=== PATIENT | male | born 1945 | race Caucasian/White ===

== ENCOUNTER 2021-03-19 11:21 | Inpatient (IN) | payer OTHER ==
[~2021-03-19] VITALS: Ht 175.3 cm; Wt 102.1 kg
--- NOTE | 2021-03-19 11:21 | NUR ---
1116 BIBA ALS TO ER BED 10
--- NOTE | 2021-03-19 11:23 | NUR ---
MOVED TO ER BED 4
[2021-03-19 11:30] VITALS: BP 152/80
--- NOTE | 2021-03-19 11:43 | NUR ---
RT BEDSIDE SPEAKING WITH PATIENT
--- NOTE | 2021-03-19 11:43 | NUR ---
IV ESTABLISHED IN R AC AND BLOOD WORK COLLECTED. BLOOD HANDED TO WORKDAY DIRECTOR BEDSIDE
--- NOTE | 2021-03-19 11:43 | NUR ---
XRAY BEDSIDE WITH PATIENT
[2021-03-19] MEDS ORDERED: ALBUTEROL SULFATE/IPRATROPIU 3 ML SOL IH ONE (11:46)
--- NOTE | 2021-03-19 11:48 | NUR ---
PT PROVIDED WTIH URINAL BEDSIDE TO OBTAIN UA
--- NOTE | 2021-03-19 11:54 | NUR ---
RT BEDSIDE PROVIDING BREATHING TX TO PATIENT
--- NOTE | 2021-03-19 11:59 | NUR ---
76 Y MALE PT BIB [facility] FIRE C/O SOB, TACHYPNEA, HYPOTENSIVE. PT WAS IN THE MIDDLE OF HAVING RADITION TODAY WHEN THE MD NOTED PT STARTED TO EXPERINCE SOB AND HYPOTENSION. PT CURRENTLY GCS 15, BUT APPEARS TO BE LETHARIC AND TACHYPNEIC. BREATH SOUNDS DIMISHED THROUGHOUT AT THIS TIME. PT DENIES ANY CHEST PAIN, N/V, FEVER/CHILLS AT THIS TIME, BUT STATED HE IS EXPERINCING SOB. SKIN DRY AND INTACT, BUT MILD EDEMA NOTED BILATERAL UE AT THIS TIME. PT CURRENTLY PLACED ON 6L NC AND SATING 100% PMH: ESOPHOHEAL CANCER, HYPOTENSION, COPD NKA
[2021-03-19 12:01] LABS: BASOPHILS % (AUTO) 0.1 % (0.0-2.0); EOSINOPHILS % (AUTO) 0.2 % (0.0-4.0); HEMATOCRIT 41.8 % (36-52); HEMOGLOBIN 13.8 g/dL (12.0-18.0); LYMPHOCYTES # (AUTO) 0.3 K/uL (2.0-11.5); LYMPHOCYTES % (AUTO) 3.1 % (20.5-51.1); MEAN CORPUSCULAR HEMOGLOBIN 30 pg (27-31); MEAN CORPUSCULAR HGB CONC 33 g/dL (33-37); MEAN CORPUSCULAR VOLUME 90.2 fL (80-94); MONOCYTES # (AUTO) 0.5 K/uL (0.8-1.0); MONOCYTES % (AUTO) 5.5 % (1.7-9.3); NEUTROPHILS # (AUTO) 8.5 K/uL (1.8-7.7); NEUTROPHILS % (AUTO) 91.1 % (42.2-75.2); PLATELET COUNT (AUTO) 76 K/uL (140-450); RED BLOOD CELL COUNT(AUTO) 4.64 MIL/uL (4.20-6.10); RED CELL DISTRIBUTION WIDTH 18.6 % (11.6-13.7); WHITE BLOOD COUNT (AUTO) 9.4 K/uL (4.8-10.8)
[2021-03-19 12:29] LABS: CREATINE KINASE MB 4.4 ng/mL (0-3.6)
[2021-03-19 12:39] LABS: ANION GAP 15.6 (8-16); CARBON DIOXIDE 24.7 mmol/L (21-32); CHLORIDE 125 mmol/L (98-107); GLUCOSE 187 mg/dL (74-106); POTASSIUM 4.3 mmol/L (3.5-5.1); SODIUM SERUM 161 mmol/L (136-145)
[2021-03-19 12:40] LABS: ASPARTATE AMINOTRANSFERASE 56 U/L (15-37); CREATININE 2.7 mg/dL (0.6-1.3); TOTAL BILIRUBIN 0.8 mg/dL (0.0-1.0); UREA NITROGEN, BLOOD 101 mg/dL (7-18)
[2021-03-19 12:41] LABS: ALBUMIN 2.5 g/dL (3.4-5.0)
[2021-03-19] MEDS ORDERED: PANT40EC PO (12:46)
[2021-03-19] MEDS ORDERED: TERA5CAP8 PO (12:46)
[2021-03-19] MEDS ORDERED: [UNRECOGNIZED DRUG - CODE] PO (12:46)
--- NOTE | 2021-03-19 12:46 | NUR ---
med rec completed for patient
--- NOTE | 2021-03-19 12:48 | NUR ---
called and spoke with patient , will bring rest of patient medications
[2021-03-19] MEDS ORDERED: CEFEPIME 1,000 MG in DEXTROSE 5% 50 ML IV ONE (13:25)
[2021-03-19] MEDS ORDERED: VANCOMYCIN 1,000 MG in DEXTROSE 5% 250 ML IV ONE (13:25)
[2021-03-19] MEDS ORDERED: NACL 0.9% 1,000 ML IV ONE (13:25)
--- NOTE | 2021-03-19 13:30 | NUR ---
ER MADE AWARE OF LOW BP AND PLACED ORDERS AT THIS TIME
[2021-03-19] MEDS ORDERED: CEFEPIME 1,000 MG VIAL ONE (13:31)
--- NOTE | 2021-03-19 13:44 | NUR ---
PT TAKEN TO CT VIA [place]
--- NOTE | 2021-03-19 13:45 | NUR ---
PT TAKEN TO CT VIA [place]
--- NOTE | 2021-03-19 14:06 | NUR ---
PT BACK FROM CT AND CONNECTED TO MONITOR
[2021-03-19] MEDS ORDERED: VANCOMYCIN 1,000 MG VIAL ONE (14:52)
--- NOTE | 2021-03-19 15:22 | NUR ---
Patient appears to be resting comfortably in bed. Vital Signs CHARTED. Respirations even and unlabored.
--- NOTE | 2021-03-19 15:22 | NUR ---
Note devi in EDM - 03/19/21 at 1522 by [email or web address] Patient appears to be resting comfortably in bed. Vital Signs within normal limits. Respirations even and unlabored.
--- NOTE | 2021-03-19 15:48 | NUR ---
PT BEDSIDE AT THIS TIME
[2021-03-19] MEDS ORDERED: MAGIC MOUTHWASH PO (15:52)
[2021-03-19] MEDS ORDERED: [UNRECOGNIZED DRUG - OTHER] PO (15:52)
--- NOTE | 2021-03-19 17:40 | NUR ---
Patient appears to be resting comfortably in bed. Vital Signs CHARTED AT THIS TIME. Respirations even and unlabored. PT CURRENTLY SLEEPING AT THIS TIME
--- NOTE | 2021-03-19 19:10 | NUR ---
PT CLEANED BEDSIDE AND PROVIDED WITH FRESH DIAPER
--- NOTE | 2021-03-19 19:15 | NUR ---
SHIFT REPORT GIVEN BY RAJ LITTLE. RN TO ASSUME CARE OF PT.
--- NOTE | 2021-03-19 19:20 | NUR ---
PT LYING IN BED WITH EYES OPEN. DENIES ANY NEEDS AT THIS TIME. VS ARE STABLE, EQUAL RISE AND FALL OF CHEST. BREATHING WITHOUT DIFFICUTLY. WILL CONTINUE TO MONITOR PT.
[2021-03-19] MEDS ORDERED: guaiFENesin DM 200/20 MG-10 ML 10 ML UDC PO PRN (19:25)
[2021-03-19] MEDS ORDERED: DOCUSATE SODIUM 100 MG GELCAP PO PRN (19:25)
[2021-03-19] MEDS ORDERED: ACETAMINOPHEN 325 MG TAB PO PRN (19:25)
[2021-03-19] MEDS ORDERED: ONDANSETRON 4 MG/2 ML VIAL IM/IVP PRN (19:25)
[2021-03-19] MEDS ORDERED: POTASSIUM CHLORIDE 10 MEQ TABER PO PRN (19:25)
--- NOTE | 2021-03-19 19:25 | NUR ---
Pt report given to RAJ CUEVAS. Transfer of care at this time.
--- NOTE | 2021-03-19 19:25 | NUR ---
PT ADMITTED UNDER DR. VOSS TO TELE. PT TELE HOLD IN ED BED 4
[2021-03-19] MEDS ORDERED: NACL 0.9% 2,000 ML IV ONE (19:30)
--- NOTE | 2021-03-19 19:30 | NUR ---
PT SOILED BED. PERINEAL CARE AND LINEN CHANGE. PT REPOSITIONED IN BED. WARM BLANKETS PROVIDED FOR COMFORT.
[2021-03-19] MEDS: DEXT 5% /NACL 0.9% 1,000 ML IV SCH (20:01)
[2021-03-19 20:31] LABS: PROTHROMBIN TIME 11.7 secs (10.8-13.4)
--- NOTE | 2021-03-19 20:55 | NUR ---
REPORT CALLED TO RAJ PENDLETON.
[2021-03-19] MEDS ORDERED: PIPERACILLIN/TAZOBACTAM 3.375 GM in DEXTROSE 5% 50 ML IV SCH (21:00)
[2021-03-19 21:13] LABS: CHOL/HDL RATIO 5.4 (1-4.5); FREE T4 (FREE THYROXINE) 0.97 ng/dL (0.76-1.46); MAGNESIUM 3.2 mg/dL (1.8-2.4); PHOSPHORUS 3.9 mg/dL (2.5-4.9)
--- NOTE | 2021-03-19 21:40 | NUR ---
Patient will be admitted to care of . Admited to TELE. Will go to [id number]. Belongings list completed. Report to RAJ SOLIS.
--- NOTE | 2021-03-19 21:45 | NUR ---
PT TRANSPORTED TO BED VIA GURNEY. JAPANESE TUTOR TRANSPORTED PT. PT CONNECTED TO ADULT LITERACY TEACHER. ALL VS ARE STABLE UPON TRANSPORT. NO ACUTE DISTRESS AT THIS TIME.
[2021-03-19 22:00] VITALS: BP 100/66
--- NOTE | 2021-03-19 22:15 | NUR ---
RECEIVED REPORT FROM ER NURSE OVER THE PHONE. PT ARRIVED VIA GURNEY, HE IS ON 2 LITERS VIA N/C HE IS ALERT AND AWAKE X 2-3. 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 PT SKIN INTACT HE WAS PLACED ON TELEMONITORING AND FALLS PRECAUTIONS.
--- NOTE | 2021-03-19 23:00 | NUR ---
SPOKE WITH ON THE PHONE. SHE SAID THAT THE PT IS DIFFICULT TO HANDLE AT HOME. WILL MAKE A NOTE WITH THE ADMISSION FOR THE ACCOUNTANT BUDGET/BAIL BOND AGENT FOR DISCHARGE PLANING. HAD BROUGHT UP PT 2ND PAIR OF HEARING AIDS WITH BATTERIES AND A RADIOLOGY EQUIPMENT SERVICER ALL WHICH WERE ADDED TO BELONGS LIST. WELL SWISH AND SWALLOW MAGIC MOUTH WASH. SPOKE WITH MD QUEZADA TO CONTINUE WITH THIS MEDICATION. ALL REQUESTED NEEDS ATTENDED BY STAFF ALL FALLS PRECAUTIONS IN PLACE.
[2021-03-20] MEDS: DEXT 5% /NACL 0.9% 1,000 ML IV SCH (02:50)
[2021-03-20 06:00] LABS: EOSINOPHILS % (AUTO) 0.2 % (0.0-4.0); HEMATOCRIT 33.7 % (36-52); HEMOGLOBIN 11.4 g/dL (12.0-18.0); LYMPHOCYTES # (AUTO) 0.2 K/uL (2.0-11.5); MEAN CORPUSCULAR HEMOGLOBIN 30 pg (27-31); MEAN CORPUSCULAR HGB CONC 34 g/dL (33-37); MEAN CORPUSCULAR VOLUME 89.5 fL (80-94); MONOCYTES # (AUTO) 0.3 K/uL (0.8-1.0); MONOCYTES % (AUTO) 5.4 % (1.7-9.3); NEUTROPHILS # (AUTO) 5.7 K/uL (1.8-7.7); PLATELET COUNT (AUTO) 56 K/uL (140-450); RED BLOOD CELL COUNT(AUTO) 3.76 MIL/uL (4.20-6.10); RED CELL DISTRIBUTION WIDTH 18.7 % (11.6-13.7); WHITE BLOOD COUNT (AUTO) 6.2 K/uL (4.8-10.8)
[2021-03-20] MEDS: PIPERACILLIN/TAZOBACTAM 2.25 GM in DEXTROSE 5% 50 ML IV SCH ×4 (06:00→23:44)
[2021-03-20 06:18] LABS: CARBON DIOXIDE 25.7 mmol/L (21-32); CHLORIDE 132 mmol/L (98-107); CREATININE 2.2 mg/dL (0.6-1.3); GLUCOSE 165 mg/dL (74-106); POTASSIUM 3.7 mmol/L (3.5-5.1)
[2021-03-20 06:24] LABS: SODIUM SERUM 163 mmol/L (136-145); UREA NITROGEN, BLOOD 94 mg/dL (7-18)
[2021-03-20 06:49] LABS: NEUTROPHILS % (AUTO) 91.4 % (42.2-75.2)
--- NOTE | 2021-03-20 06:57 | NUR ---
PATIENT HAS BEEN SCREENED AND CATEGORIZED MODERATE NUTRITION RISK. PATIENT WILL BE SEEN WITHIN 3-5 DAYS OF ADMISSION. 03/23/21-03/25/21 DANIEL STEEN MS, RDN
[2021-03-20] MEDS ORDERED: PIPERACILLIN/TAZOBACTAM 2.25 GM VIAL IV ONE (07:03)
--- NOTE | 2021-03-20 07:17 | NUR ---
ESEQUIEL DIETZ ORDERED PT WAS TURNED CHANGED AND REPOSITIONED RECEIVED CRITICAL LANS TEXTED MD ENDORSED TO AM TO F/U
--- NOTE | 2021-03-20 07:35 | NUR ---
BEDSIDE REPORT RECEIVED FROM MANAGER ETL NURSE ALL SAFETY MEASURES ARE IN PLACE.
[2021-03-20 08:00] VITALS: BP 133/74
[2021-03-20 08:07] LABS: T4 (THYROXINE) 6.5 ug/dL (4.5-12.0)
[2021-03-20] MEDS ORDERED: PANTOPRAZOLE 40 MG TABEC PO SCH (09:00)
[2021-03-20] MEDS ORDERED: TERAZOSIN HCL 10 MG PO SCH (09:00)
--- NOTE | 2021-03-20 09:00 | NUR ---
MEDICATIONS GIVEN PER MD ORDER. PT EDUCATED AND VERBALIZED UNDERSTANDING ALL SAFETY MEASURES ARE IN PLACE.
[2021-03-20] MEDS: PANTOPRAZOLE 40 MG INJ VIAL IVP SCH (09:11)
[2021-03-20] MEDS: TERAZOSIN 5 MG CAP PO SCH (09:12)
--- NOTE | 2021-03-20 11:25 | NUR ---
PATIENT CHANGED AND REPOSITIONED ONE PERSON ASSIST , ORAL CARE PERFORMED INDEPENDENTLY , GOWN CHANGED BED SANDRA GIVEN . ALL SAFETY MEASURES ARE IN PLACE.
[2021-03-20 12:00] VITALS: BP 124/73
[2021-03-20] MEDS: DEXT 5% / NACL 0.45% 1,000 ML IV SCH ×2 (12:40→20:45)
--- NOTE | 2021-03-20 14:34 | NUR ---
PATIENT CHANGED AGAIN , ONLY URINE AT THIS TIME , ALL SAFETY MEASURES ARE IN PLACE.
[2021-03-20 16:00] VITALS: BP 129/75
--- NOTE | 2021-03-20 16:35 | NUR ---
PATIENT CHANGED AND REPOSITIONED, NEW GOWN PROVIDED ALL SAFETY MEASURES ARE IN PLACE
[2021-03-20 16:37] LABS: ANION GAP 17.2 (8-16); CARBON DIOXIDE 21.9 mmol/L (21-32); CHLORIDE 136 mmol/L (98-107); GLUCOSE 181 mg/dL (74-106); POTASSIUM 5.1 mmol/L (3.5-5.1)
[2021-03-20 17:17] LABS: SODIUM SERUM 170 mmol/L (136-145); UREA NITROGEN, BLOOD 83 mg/dL (7-18)
--- NOTE | 2021-03-20 18:25 | NUR ---
PATIENT ASSISTED WITH DINNER, PATIENT REFUSED, PER BROTHER PATIENT HAS NOT EATEN IN 10 DAYS AND REQUEST TPN , WILL NOTIFY
--- NOTE | 2021-03-20 19:30 | NUR ---
PATIENT ENDORSED TO MANAGER PLANT NURSE PATIENT IN STABLE CONDITION.
--- NOTE | 2021-03-20 19:31 | NUR ---
RECEIVED BEDSIDE REPORT FROM DAY SHIFT RN FOR CONTINUITY OF CARE. PT SLEEPING ON BED. PT ON 2L VIA NC.IVF RUNNING MD ORDER. PT IS NOT IN ANY DISTRESS. CALL LIGHT WITHIN REACH. ALL SAFETY MEASURES TAKEN. WILL CONTINUE TO MONITOR.
[2021-03-20 20:00] VITALS: BP 137/77
--- NOTE | 2021-03-20 20:30 | NUR ---
VSS STABLE. VISIBLE CHEST RISE AND FALL NOTED. ALL PRECAUTIONS IN PLACE. WILL CONTINUE TO MONITOR.
[2021-03-21] VITALS: BP 111/76
--- NOTE | 2021-03-21 | NUR ---
SCHEDULE MEDICATION GIVEN. PT TOLERATED WELL. NO DISTRESS NOTED.VS STABLE. PT REQUESTED FOR A BLANKET. ALL PRECAUTIONS IN PLACE. WILL CONTINUE TO MONITOR.
--- NOTE | 2021-03-21 02:20 | NUR ---
PT ASLEEP.VISIBLE CHEST RISE AND FALL NOTED.NO DISTRESS NOTED. ALL PRECAUTIONS IN PLACE. WILL CONTINUE TO MONITOR.
[2021-03-21 04:00] VITALS: BP 118/78
[2021-03-21] MEDS: PIPERACILLIN/TAZOBACTAM 2.25 GM in DEXTROSE 5% 50 ML IV SCH ×4 (06:00→23:37)
[2021-03-21] MEDS: DEXT 5% / NACL 0.45% 1,000 ML IV SCH (06:00)
[2021-03-21 06:18] LABS: BASOPHILS % (AUTO) 0.1 % (0.0-2.0); EOSINOPHILS % (AUTO) 0.3 % (0.0-4.0); HEMATOCRIT 35.4 % (36-52); HEMOGLOBIN 11.8 g/dL (12.0-18.0); LYMPHOCYTES # (AUTO) 0.2 K/uL (2.0-11.5); MEAN CORPUSCULAR HEMOGLOBIN 30 pg (27-31); MEAN CORPUSCULAR HGB CONC 33 g/dL (33-37); MONOCYTES # (AUTO) 0.3 K/uL (0.8-1.0); MONOCYTES % (AUTO) 5.1 % (1.7-9.3); NEUTROPHILS # (AUTO) 5.1 K/uL (1.8-7.7); PLATELET COUNT (AUTO) 51 K/uL (140-450); RED BLOOD CELL COUNT(AUTO) 3.93 MIL/uL (4.20-6.10); RED CELL DISTRIBUTION WIDTH 18.4 % (11.6-13.7); WHITE BLOOD COUNT (AUTO) 5.7 K/uL (4.8-10.8)
--- NOTE | 2021-03-21 07:00 | NUR ---
PT STABLE. NO ACUTE EVENTS THROUGHOUT THE NIGHT. PT IS NOT IN ANY DISTRESS. PT HAS NO COMPLAINS AT THIS TIME. ALL NEEDS ATTENDED. ALL PRECAUTIONS IN PLACE. WILL ENDORSE TO AM SHIFT NURSE.
[2021-03-21 07:01] LABS: ANION GAP 10.7 (8-16); CARBON DIOXIDE 26.1 mmol/L (21-32); CHLORIDE 136 mmol/L (98-107); CREATININE 2.1 mg/dL (0.6-1.3); GLUCOSE 204 mg/dL (74-106); POTASSIUM 3.8 mmol/L (3.5-5.1)
[2021-03-21 07:14] LABS: LYMPHOCYTES % (AUTO) 3.8 % (20.5-51.1); NEUTROPHILS % (AUTO) 90.7 % (42.2-75.2)
--- NOTE | 2021-03-21 07:20 | NUR ---
PT ENDORSED TO AM SHIFT NURSE FOR CONTINUITY OF CARE. PT IS STABLE.
--- NOTE | 2021-03-21 07:29 | NUR ---
PATIENT RECEIVED FROM BANK REPRESENTATIVE NURSE, PT RESTING IN BED EYES CLOSED, BREATHING SYMMETRICAL AND UNLABORED. BED ALARM SALVAGE WORKER LIGHT WITHIN REACH BED IN LOWEST POSITION , ALL SAFETY MEASURES ARE IN PLACE
[2021-03-21 07:46] LABS: SODIUM SERUM 169 mmol/L (136-145); UREA NITROGEN, BLOOD 73 mg/dL (7-18)
[2021-03-21] MEDS: PANTOPRAZOLE 40 MG INJ VIAL IVP SCH (08:41)
[2021-03-21] MEDS: TERAZOSIN 5 MG CAP PO SCH (08:42)
--- NOTE | 2021-03-21 09:00 | NUR ---
MEDICATIONS GIVEN PER MD ORDER PATIENT EDUCATED AND VERBALIZED UNDERSTANDING , ALL SAFETY MEASURES ARE IN PLACE.
[2021-03-21] MEDS: DEXTROSE 5% 1,000 ML IV SCH ×2 (09:50→17:50)
[2021-03-21] MEDS ORDERED: NACL 0.9% 500 ML IV ONE (10:50)
--- NOTE | 2021-03-21 11:25 | NUR ---
PATIENT CHANGED AT REPOSITIONED PATIENT. ALL SAFETY MEASURES ARE IN PLACE.
[2021-03-21 12:00] VITALS: BP 123/67
--- NOTE | 2021-03-21 13:35 | NUR ---
PATIENTS GOWN AND LINEN CHANGED , ALL MEDICATIONS GIVEN PER MD ORDER, PT EDUCATED. BROTHER ARTHUR DEGROOT CALLED [phone], PT STATED IT IS OKAY TO GIVE INFORMATION TO BROTHER, ALL SAFETY MEASURES ARE IN PLACE.
--- NOTE | 2021-03-21 15:46 | NUR ---
PATIENT RESTING IN BED 02% 100 NO S/SX OF DISTRESS AT THIS TIME
[2021-03-21 16:00] VITALS: BP 120/73
[2021-03-21 16:16] LABS: ANION GAP 13.7 (8-16); CARBON DIOXIDE 25.1 mmol/L (21-32); CHLORIDE 140 mmol/L (98-107); GLUCOSE 202 mg/dL (74-106); POTASSIUM 3.8 mmol/L (3.5-5.1)
[2021-03-21 16:21] LABS: SODIUM SERUM 175 mmol/L (136-145)
[2021-03-21 16:22] LABS: UREA NITROGEN, BLOOD 69 mg/dL (7-18)
--- NOTE | 2021-03-21 16:24 | NUR ---
PATIENT ASSISTED WITH SNACK PATIENT TOLERATED WELL ALL SAFETY MEASURES ARE IN PLACE.
--- NOTE | 2021-03-21 18:35 | NUR ---
BROTHLENORE DEGROOT CALLED [phone], BOTHER TALKED TO PATIENT , NO S/SX OF DISTRESS AT THIS TIME . ALL SAFETY MEASURES ARE IN PLACE.
--- NOTE | 2021-03-21 19:37 | NUR ---
PATIENT ENDORSED TO STAFF EDUCATOR , PT IN STABLE CONDITION.
--- NOTE | 2021-03-21 19:38 | NUR ---
RECEIVED BEDSIDE REPORT FROM DAY SHIFT RN FOR CONTINUITY OF CARE. A&O X 4. PT ON 2L VIA NC.IVF RUNNING MD ORDER ON LEFT FOOT. PT IS NOT IN ANY DISTRESS. CALL LIGHT WITHIN REACH. ALL SAFETY MEASURES TAKEN. WILL CONTINUE TO MONITOR.
[2021-03-21 20:00] VITALS: BP 112/77
--- NOTE | 2021-03-21 20:30 | NUR ---
VSS STABLE. VISIBLE CHEST RISE AND FALL NOTED. ALL PRECAUTIONS IN PLACE. WILL CONTINUE TO MONITOR.
--- NOTE | 2021-03-21 22:00 | NUR ---
PATIENT CHANGED AT REPOSITIONED PATIENT. AT BEDSIDE. ALL SAFETY MEASURES ARE IN PLACE. WILL CONTINUE TO MONITOR.
--- NOTE | 2021-03-21 23:45 | NUR ---
SCHEDULE MEDICATION GIVEN. PT TOLERATED WELL. NO DISTRESS NOTED.VS STABLE. PT REQUESTED FOR A BLANKET. ALL PRECAUTIONS IN PLACE. WILL CONTINUE TO MONITOR.
[2021-03-22] VITALS: BP 129/83
[2021-03-22] MEDS: DEXTROSE 5% 1,000 ML IV SCH ×4 (01:27→18:34)
--- NOTE | 2021-03-22 01:30 | NUR ---
PT ASLEEP. PROVIDED WARM BLANKET. NO DISTRESS NOTED. ALL PRECAUTIONS IN PLACE. WILL CONTINUE TO MONITOR.
--- NOTE | 2021-03-22 03:33 | NUR ---
PT ASLEEP.VISIBLE CHEST RISE AND FALL NOTED.VSS.NO DISTRESS NOTED. ALL PRECAUTIONS IN PLACE. WILL CONTINUE TO MONITOR.
[2021-03-22 04:00] VITALS: BP 112/76
[2021-03-22 05:47] LABS: HEMATOCRIT 33.3 % (36-52); HEMOGLOBIN 11.2 g/dL (12.0-18.0); MEAN CORPUSCULAR HEMOGLOBIN 30 pg (27-31); MEAN CORPUSCULAR HGB CONC 34 g/dL (33-37); RED CELL DISTRIBUTION WIDTH 18.8 % (11.6-13.7)
[2021-03-22] MEDS: PIPERACILLIN/TAZOBACTAM 2.25 GM in DEXTROSE 5% 50 ML IV SCH ×4 (06:04→23:02)
[2021-03-22 07:10] LABS: ANION GAP 11.9 (8-16); CARBON DIOXIDE 24.9 mmol/L (21-32); CHLORIDE 141 mmol/L (98-107); CREATININE 2.1 mg/dL (0.6-1.3); GLUCOSE 195 mg/dL (74-106); POTASSIUM 3.8 mmol/L (3.5-5.1)
[2021-03-22 07:14] LABS: PLATELET COUNT (AUTO) 52 K/uL (140-450)
[2021-03-22 07:15] LABS: LYMPHOCYTES % (MANUAL) 7 % (20-46); MONOCYTES % (MANUAL) 4 % (5-12)
--- NOTE | 2021-03-22 07:25 | NUR ---
RECEIVED BEDSIDE REPORT FROM ADMINISTRATIVE SPECIALIST NURSE FOR CONTINUITY OF CARE. PT IS ASLEEP. CHEST RISE AND FALL SYMMETRICAL. ON 2L O2 NC WITH BREATHING UNLABORED. DRY DIAPER IN PLACE PT IS INCONTINENT. UPPER EXTREMITY SWELLING NOTED. BLISTERS ON THE LEFT UPPER ARM. IV IS IN THE LEFT FOOT 24 GAUGE RUNNING D5 AT 125 ML PER HOUR PER ORDER. PT IS STABLE. PLAN OF CARE DISCUSSED.
--- NOTE | 2021-03-22 07:25 | NUR ---
ENDORSED TO AM SHIFT NURSE FOR CONTINUITY OF CARE. PT IS STABLE.
[2021-03-22 08:00] VITALS: BP 120/72
--- NOTE | 2021-03-22 08:15 | NUR ---
VANCE NEWMAN, ATTEMPTING TO FEED PT BREAKFAST. PT REFUSED BREAKFAST BESIDES SHAKE. POOR APPETITE.
[2021-03-22 08:30] LABS: SODIUM SERUM 174 mmol/L (136-145); UREA NITROGEN, BLOOD 62 mg/dL (7-18)
[2021-03-22] MEDS ORDERED: VANCOMYCIN PER PHARMACY MC PRN (09:05)
[2021-03-22] MEDS: PANTOPRAZOLE 40 MG INJ VIAL IVP SCH (09:18)
[2021-03-22] MEDS: TERAZOSIN 5 MG CAP PO SCH (09:18)
--- NOTE | 2021-03-22 09:30 | NUR ---
ROUNDED ON PT. HE WAS REPOSITIONED AND PLACED IN HIGH FOWLERS POSITION. PT IS STABLE. NO RESPIRATORY DISTRESS NOTED ON 2L O2 NC. PT RESPONDING TO QUESTIONS APPROPRIATELY. WILL CONTINUE TO MONITOR.
[2021-03-22] MEDS ORDERED: VANCOMYCIN 1,500 MG in DEXTROSE 5% 500 ML IV SCH (10:00)
--- NOTE | 2021-03-22 11:23 | NUR ---
PT IS ASLEEP. CHEST RISE AND FALL SYMMETRICAL. BREATHING UNLABORED ON RA. CALL LIGHT WITHIN REACH. IV FLUIDS INFUSING ORDERED. PT STABLE.
[2021-03-22 12:00] VITALS: BP 128/74
--- NOTE | 2021-03-22 13:20 | NUR ---
IV FLUIDS STOPPED THERE IS NO IV ACCESS SINCE THE IV IN THE FOOT IS INFILTRATED.
--- NOTE | 2021-03-22 13:25 | NUR ---
INFORMED DR. VOSS THAT THE IV IN THE FOOT APPEARS TO BE INFILTRATED. PT IS A HARD STICK DUE TO SWELLING ON THE UPPER EXTREMITIES. ASKED IF HE WOULD CONSIDER PLACING A MIDLINE. DR. VOSS AGREED TO PLACE A MIDLINE. SPOKE WITH FAMILY AND AGREED, AKHIL GIBSON. VERIFIED BY SECOND RN TATYANA ON THE TELEPHONE. PHONE NUMBER [phone].
--- NOTE | 2021-03-22 13:35 | NUR ---
SPOKE WITH ZANE GIBSON, BROTHER. INFORMED HIM OF THE MIDLINE PLACEMENT REQUESTED BY AKHIL. ZANE GIBSON AGREED WITH PLACEMENT OF MIDLINE PLACEMENT.
[2021-03-22] MEDS: CINACALCET 30 MG TAB PO SCH ×2 (13:53→21:00)
--- NOTE | 2021-03-22 15:30 | NUR ---
PT IS SLEEPING. CHEST RISE AND FALL SYMMETRICAL. BREATHING IS UNLABORED ON 2L O2 NC. FLACC 0. PT EASILY WOKEN UP WHEN TURNING ON HEARING AID AND CALLING BY NAME. PT IS STABLE.
[2021-03-22 16:00] VITALS: BP 111/69
--- NOTE | 2021-03-22 18:04 | NUR ---
PICC LINE NURSE AT BEDSIDE TO BEGIN MIDLINE PLACEMENT ON PT. PT IS STABLE. NO DISTRESS NOTED. WILL CONTINUE TO MONITOR.
--- NOTE | 2021-03-22 18:15 | NUR ---
MIDLINE PLACED IN THE RIGHT UPPER ARM. PATENT AND FLUSHING WELL. PICC LINE NURSE STATED IT WAS OKAY TO USE. FLUIDS HAVE BEEN RESTARTED ORDERED.
--- NOTE | 2021-03-22 19:04 | NUR ---
WILL ENDORSE PT TO MEDICAL ADVISOR NURSE FOR CONTINUITY OF CARE. PT IS STABLE. PLAN OF CARE DISCUSSED.
[2021-03-22 20:00] VITALS: BP 124/68
[2021-03-22] MEDS: ZOLPIDEM 5 MG TAB PO PRN (22:12)
[2021-03-23 00:45] VITALS: BP 119/71
[2021-03-23 04:00] VITALS: BP 121/69
[2021-03-23] MEDS: PIPERACILLIN/TAZOBACTAM 2.25 GM in DEXTROSE 5% 50 ML IV SCH ×4 (05:02→23:47)
[2021-03-23 05:54] LABS: BASOPHILS % (AUTO) 0.1 % (0.0-2.0); EOSINOPHILS # (AUTO) 0.1 K/uL (0-0.4); EOSINOPHILS % (AUTO) 1.6 % (0.0-4.0); HEMATOCRIT 31.5 % (36-52); HEMOGLOBIN 10.6 g/dL (12.0-18.0); LYMPHOCYTES # (AUTO) 0.2 K/uL (2.0-11.5); LYMPHOCYTES % (AUTO) 3.5 % (20.5-51.1); MEAN CORPUSCULAR HEMOGLOBIN 30 pg (27-31); MEAN CORPUSCULAR HGB CONC 34 g/dL (33-37); MEAN CORPUSCULAR VOLUME 89.9 fL (80-94); MONOCYTES # (AUTO) 0.2 K/uL (0.8-1.0); MONOCYTES % (AUTO) 3.8 % (1.7-9.3); NEUTROPHILS # (AUTO) 5.1 K/uL (1.8-7.7); PLATELET COUNT (AUTO) 35 K/uL (140-450); RED CELL DISTRIBUTION WIDTH 18.3 % (11.6-13.7); WHITE BLOOD COUNT (AUTO) 5.6 K/uL (4.8-10.8)
[2021-03-23 06:22] LABS: ANION GAP 9.7 (8-16); CARBON DIOXIDE 29.1 mmol/L (21-32); CHLORIDE 132 mmol/L (98-107); CREATININE 1.7 mg/dL (0.6-1.3); GLUCOSE 209 mg/dL (74-106); POTASSIUM 3.8 mmol/L (3.5-5.1); UREA NITROGEN, BLOOD 48 mg/dL (7-18)
[2021-03-23] MEDS: DEXTROSE 5% 1,000 ML IV SCH ×3 (06:32→21:00)
--- NOTE | 2021-03-23 06:36 | NUR ---
the patient vitals are stable. breathing is even and unlabored. he refuses to eat .his brother called to discuss his care plan and he stated that his brother did not get solid food starting from 03/07 till 03/19 and he want to let the md knows that the IV fluids doesnot privde his [place] enough nutriets.the brother stated that his brother maine needs protein shake .
[2021-03-23 06:41] LABS: SODIUM SERUM 167 mmol/L (136-145)
--- NOTE | 2021-03-23 07:30 | NUR ---
RECEIVED BEDSIDE REPORT FROM ANALYSIS INTERN NURSE FOR CONTINUITY OF CARE. PT IS ASLEEP. CHEST RISE AND FALL SYMMETRICAL. ON 2L O2 NC WITH BREATHING UNLABORED. DRY DIAPER IN PLACE PT IS INCONTINENT. UPPER EXTREMITY SWELLING NOTED. BLISTERS ON THE LEFT UPPER ARM. HAS TANYA MIDLINE RUNNING D5 AT 150 ML PER HOUR PER ORDER. PT IS STABLE. PLAN OF CARE DISCUSSED. SAFETY PRECAUTIONS IN PLACE. CALL LIGHT WITHIN REACH. WILL CONTINUE TO MONITOR.
[2021-03-23 08:00] VITALS: BP 116/71
[2021-03-23] MEDS: CINACALCET 30 MG TAB PO SCH ×2 (09:03→21:49)
[2021-03-23] MEDS: PANTOPRAZOLE 40 MG INJ VIAL IVP SCH (09:03)
[2021-03-23] MEDS: TERAZOSIN 5 MG CAP PO SCH (09:03)
--- NOTE | 2021-03-23 09:40 | NUR ---
ALL SCHEDULED MEDS GIVEN. PT IS STABLE. NO DISTRESS NOTED. WILL CONTINUE TO MONITOR.
--- NOTE | 2021-03-23 10:45 | NUR ---
PHYSICAL THERAPIST AT BEDSIDE.
[2021-03-23 12:00] VITALS: BP 113/90
--- NOTE | 2021-03-23 12:18 | NUR ---
ALL SCHEDULED MEDS GIVEN. PT IS STABLE. NO DISTRESS NOTED. WILL CONTINUE TO MONITOR
--- NOTE | 2021-03-23 12:19 | NUR ---
RECEIVED BEDSIDE REPORT FROM BASKETBALL ASSEMBLER NURSE FOR CONTINUITY OF CARE. PT IS ASLEEP. CHEST RISE AND FALL SYMMETRICAL. ON 2L O2 NC WITH BREATHING UNLABORED. DRY DIAPER IN PLACE PT IS INCONTINENT. UPPER EXTREMITY SWELLING NOTED. BLISTERS ON THE LEFT UPPER ARM. HAS TANYA MIDLINE RUNNING D5 AT 150 ML PER HOUR PER ORDER. PT IS STABLE. PLAN OF CARE DISCUSSED. SAFETY PRECAUTIONS IN PLACE. CALL LIGHT WITHIN REACH. WILL CONTINUE TO MONITOR. Addendum: 03/23/21 at 1220 by Jasson Mendoza RN RN WRONG TIMESTAMP*
--- NOTE | 2021-03-23 14:30 | NUR ---
CHECKED ON PATIENT. PT IS ASLEEP AND STABLE. NOTED CHEST RISE AND FALL. WILL CONTINUE TO MONITOR.
[2021-03-23 16:00] VITALS: BP 116/76
--- NOTE | 2021-03-23 16:04 | NUR ---
ASSISTED ELECTRONIC SCIENCE TEACHER WITH CHANGING PATIENT. KEPT PT DRY AND CLEAN. WILL CONTINUE TO MONITOR.
--- NOTE | 2021-03-23 18:45 | NUR ---
ALL SCHEDULED MEDS GIVEN. PT IS STABLE. NO DISTRESS NOTED. WILL CONTINUE TO MONITOR.
[2021-03-23] MEDS ORDERED: TPN PER PHARMACY MC PRN (19:05)
--- NOTE | 2021-03-23 19:22 | NUR ---
ENDORSED TO CURATOR MEDICAL MUSEUM NURSE FOR CONTINUITY OF CARE. PT IS STABLE.
[2021-03-23] MEDS: ZOLPIDEM 5 MG TAB PO PRN (21:49)
[2021-03-23] MEDS: HYDROcodone/APAP 7.5/325 MG 1 TAB PO PRN (22:12)
[2021-03-23 22:56] VITALS: BP 121/68
[2021-03-24] MEDS: DEXTROSE 5% 1,000 ML IV SCH ×4 (02:28→22:18)
--- NOTE | 2021-03-24 02:28 | NUR ---
the patient vitals are stable. the patient stated that he has insomnina and pain in his left arm. narco and ambien were given. breathing is even and unlabored .comfort and safety measures were provided. he sleeps comfortable in his bed
[2021-03-24 04:36] VITALS: BP 121/68
[2021-03-24 05:45] LABS: BASOPHILS % (AUTO) 0.3 % (0.0-2.0); EOSINOPHILS # (AUTO) 0.2 K/uL (0-0.4); EOSINOPHILS % (AUTO) 2.8 % (0.0-4.0); HEMATOCRIT 31.3 % (36-52); HEMOGLOBIN 10.6 g/dL (12.0-18.0); LYMPHOCYTES # (AUTO) 0.2 K/uL (2.0-11.5); LYMPHOCYTES % (AUTO) 4.4 % (20.5-51.1); MEAN CORPUSCULAR HEMOGLOBIN 30 pg (27-31); MEAN CORPUSCULAR HGB CONC 34 g/dL (33-37); MEAN CORPUSCULAR VOLUME 88.8 fL (80-94); MONOCYTES # (AUTO) 0.2 K/uL (0.8-1.0); MONOCYTES % (AUTO) 3.8 % (1.7-9.3); NEUTROPHILS # (AUTO) 4.7 K/uL (1.8-7.7); NEUTROPHILS % (AUTO) 88.7 % (42.2-75.2); PLATELET COUNT (AUTO) 37 K/uL (140-450); RED BLOOD CELL COUNT(AUTO) 3.53 MIL/uL (4.20-6.10); RED CELL DISTRIBUTION WIDTH 18.4 % (11.6-13.7); WHITE BLOOD COUNT (AUTO) 5.3 K/uL (4.8-10.8)
[2021-03-24] MEDS: PIPERACILLIN/TAZOBACTAM 2.25 GM in DEXTROSE 5% 50 ML IV SCH ×2 (05:53→12:39)
[2021-03-24 06:25] LABS: ANION GAP 9.3 (8-16); CARBON DIOXIDE 27.4 mmol/L (21-32); CHLORIDE 127 mmol/L (98-107); CREATININE 1.4 mg/dL (0.6-1.3); GLUCOSE 170 mg/dL (74-106); POTASSIUM 3.7 mmol/L (3.5-5.1); UREA NITROGEN, BLOOD 39 mg/dL (7-18)
[2021-03-24 06:34] LABS: SODIUM SERUM 160 mmol/L (136-145)
--- NOTE | 2021-03-24 07:40 | NUR ---
RECEIVED BEDSIDE REPORT FROM RECREATION CENTER DIRECTOR NURSE FOR CONTINUITY OF CARE. PT IS ASLEEP. CHEST RISE AND FALL SYMMETRICAL. ON RA WITH BREATHING UNLABORED. DRY DIAPER IN PLACE PT IS INCONTINENT. UPPER EXTREMITY SWELLING NOTED. BLISTERS ON THE LEFT UPPER ARM. HAS TANYA MIDLINE RUNNING D5 AT 150 ML PER HOUR PER ORDER. PT IS STABLE. PLAN OF CARE DISCUSSED. SAFETY PRECAUTIONS IN PLACE. CALL LIGHT WITHIN REACH. WILL CONTINUE TO MONITOR.
[2021-03-24 08:00] VITALS: BP 118/75
[2021-03-24 08:32] LABS: MAGNESIUM 2.1 mg/dL (1.8-2.4); PHOSPHORUS 2.5 mg/dL (2.5-4.9)
[2021-03-24] MEDS: PANTOPRAZOLE 40 MG INJ VIAL IVP SCH (08:43)
[2021-03-24] MEDS: CINACALCET 30 MG TAB PO SCH ×2 (08:43→21:01)
[2021-03-24] MEDS: TERAZOSIN 5 MG CAP PO SCH (08:43)
--- NOTE | 2021-03-24 09:00 | NUR ---
ALL SCHEDULED MEDS GIVEN. PT IS STABLE. NO DISTRESS NOTED. WILL CONTINUE TO MONITOR.
--- NOTE | 2021-03-24 10:15 | NUR ---
ENDORSED PATIENT UPDATE TO PATIENT'S .
[2021-03-24 12:00] VITALS: BP 110/55
--- NOTE | 2021-03-24 12:40 | NUR ---
ALL SCHEDULED MEDS GIVEN. PT IS STABLE. NO DISTRESS NOTED. WILL CONTINUE TO MONITOR.
--- NOTE | 2021-03-24 14:15 | NUR ---
CARLOS MACHADO AT BEDSIDE SPEAKING WITH THE PATIENT REGARDING PLAN OF CARE.
--- NOTE | 2021-03-24 14:29 | NUR ---
ASSISTED TSO WITH CHANGING PATIENT. PATIENT KEPT CLEAN AND DRY. CLEANED BLISTER AREAS ON LEFT ARM AND PLACED CLEAN DRESSINGS. PT IS STABLE. WILL CONTINUE TO MONITOR
--- NOTE | 2021-03-24 15:08 | NUR ---
03/24/21 RD INITIAL ASSESSMENT COMPLETED PLEASE REFER TO NUTRITION ASSESSMENT UNDER CARE ACTIVITY FOR ESTIMATED NUTRITIONAL NEEDS. 1. CONTINUE TPN PER PHARMACY (STARTING TONIGHT 03/24/21 PER RN) 2. WHEN/IF MEDICALLY APPROPRIATE, RECOMMEND TUBE FEEDING -GLUCERNA 1.2 WITH A GOAL RATE OF 60 ML/HR -WATER FLUSH: 50 ML Q6H OR PER MD -WILL PROVIDE 1728 KCAL AND 86 GM PROTEIN, MEETING 82% ESTIMATED KCAL NEEDS AND 100% ESTIMATED PROTEIN NEEDS 3. RD TO FOLLOW-UP 2-3 DAYS, HIGH RISK KATIE CAMACHO RD
[2021-03-24 16:00] VITALS: BP 110/66
--- NOTE | 2021-03-24 16:45 | NUR ---
CHECKED ON PATIENT. PT IS STABLE. NO DISTRESS NOTED. WILL CONTINUE TO MONITOR.
--- NOTE | 2021-03-24 16:45 | NUR ---
DC PLANNING: PATIENT PRESENTED TO ED WITH WITH SOB AND TACHYCARDIA S/P RADIATION. PATIENT HAS H/O ESOPHAGEAL CA AND STARTED TREATMENT ON FEB 01 OF THIS YEAR PER HIS BROTHER ZANE. EKG SHOWS RBBB, CXR SHOWS BIBASILAR OPACITIES. LEFT HAND RED AND SWOLLEN WITH BLISTERS, CT OF LEFT EXTREMITY NEGATIVE FOR ACUTE FINDINGS. NA+ ON ADMISSION 175, CA+ 12.3, CR 2. CONSULTS WITH NEPHRO, ID AND ENDOCRINOLOGY ORDERED INITIALLY. ORDERS TODAY FOR TPN AND GI CONSULT FOR PEG PLACEMENT. CARLOS ATTEMPTED TO SPEAK WITH PATIENT AT BEDSIDE, HE WAS LETHARGIC AND UNABLE TO SUSTAIN CONVERSATION. CARLOS THEN RECEIVED A CALL FROM HIS BROTHER ZANE ([phone]), CM DISCUSSED PLAN FOR PATIENT TO GO TO SNF FOR CONTINUED CARE. THE PATIENT LIVES WITH HIS IN A SINGLE STORY HOUSE AND HAS BEEN DRIVING HIMSELF TO HIS CANCER TREATMENTS, ZANE IS NOT SURE WHERE. THE PATIENT WAS NORMALLY ACTIVE AND INDEPENDENT UNTIL ABOUT A WEEK AGO WHEN HE BECAME VERY WEAK AFTER COMPLETING HIS TREATMENT. CARLOS FAXED ORDERS AND REFERRAL TO ROHIT AT [facility] FOR APPROVAL BY THEIR SNF'IST FOR SNF PLACEMENT. CARLOS WILL FOLLOW UP FOR AUTHORIZATION AND PLACEMENT AT A CONTRACTED FACILITY. ZANE ALSO PROVIDED THE PATIENTS SISTER OMAR'S PHONE NUMBER OF [phone]. Addendum: 03/25/21 at 0840 by Stephani Alvarez CM DC PLANNING: CARLOS SPOKE WITH ROHIT AT [facility] TO CONFIRM THAT SHE RECEIVED THE PATIENTS CLINICAL PACKET FOR SNF REFERRAL. SHE WILL CALL BACK ONCE HER SNF MD REVIEWS FOR AUTHORIZATION. CARLOS WILL FOLLOW FOR NEEDS. Addendum: 03/25/21 at 1059 by Stephani Alvarez DC PLANNING: PATIENT APPROVED BY [facility] FOR SNF PLACEMENT, AUTH NUMBER PENDING ACCEPTANCE. REFERRAL FAXED TO [facility]. [facility]SP[facility] ([phone]) [id number]. CM WILL FOLLOW UP FOR SNF ACCEPTANCE. Addendum: 03/25/21 at 1354 by Stephani Alvarez DC PLANNING: PATIENT IN OR FOR PEG PLACEMENT, ANTICIPATE DC IN AM IF ABLE TO TOLERATE FEEDINGS. PATIENT ACCEPTED TO [facility], PLEASE CALL DREW AT [phone] BEFORE SENDING TO CHECK ON ROOM ASSIGNMENT. ACCEPTING MD DR [place], TENTATIVE ROOM ASSIGNMENT 15C, NUMBER TO FACILITY IS [phone]. CM WILL FOLLOW FOR NEEDS.
--- NOTE | 2021-03-24 17:20 | NUR ---
OBTAINED CONSENT FORM FOR EGD WITH PEG PLACEMENT FROM DR. ROUSSEAU AND TELEPHONE CONSENT FROM PATIENT'S FAMILY.
--- NOTE | 2021-03-24 19:25 | NUR ---
ENDORSED TO TINNING EQUIPMENT TENDER NURSE FOR CONTINUITY OF CARE. PT IS STABLE.
[2021-03-24] MEDS ORDERED: AMINO ACIDS 8.5% IV SCH ×3 (20:00)
[2021-03-24] MEDS ORDERED: FAT EMULSION 20% IV SCH ×3 (20:00)
[2021-03-24] MEDS ORDERED: DEXTROSE 50% IV SCH ×3 (20:00)
--- NOTE | 2021-03-24 20:19 | NUR ---
FAXED REQUEST FOR PATIENT'S MEDICAL RECORDS TO [facility]. ENDORSED TO CLOTHES SEPARATOR NURSE AND TRENCHER DRIVER
[2021-03-24] MEDS: HYDROcodone/APAP 7.5/325 MG 1 TAB PO PRN (21:02)
[2021-03-24] MEDS: BLOOD GLUCOSE MONITORING 1 DEV DEV MC SCH (21:29)
[2021-03-24 22:03] VITALS: BP 115/72
[2021-03-24] MEDS: ZOLPIDEM 5 MG TAB PO PRN (22:08)
--- NOTE | 2021-03-24 22:16 | NUR ---
the patent vitals are stable . he stated that he has pain and can not sleep . narco and ambien was given . TPN started at 1999, his BS is 144 no insulin coverage .comfort and Safety measures are provided.he sleep comfortable in his bed .
[2021-03-25 03:51] VITALS: BP 132/65
[2021-03-25] MEDS: DEXTROSE 5% 1,000 ML IV SCH ×4 (04:58→21:48)
[2021-03-25 05:39] LABS: BASOPHILS # (AUTO) 0.1 K/uL (0.00-0.22); BASOPHILS % (AUTO) 1.2 % (0.0-2.0); EOSINOPHILS # (AUTO) 0.2 K/uL (0-0.4); HEMATOCRIT 31.8 % (36-52); HEMOGLOBIN 10.9 g/dL (12.0-18.0); LYMPHOCYTES # (AUTO) 0.3 K/uL (2.0-11.5); LYMPHOCYTES % (AUTO) 6.6 % (20.5-51.1); MEAN CORPUSCULAR HEMOGLOBIN 30 pg (27-31); MEAN CORPUSCULAR HGB CONC 34 g/dL (33-37); MEAN CORPUSCULAR VOLUME 87.6 fL (80-94); MONOCYTES # (AUTO) 0.2 K/uL (0.8-1.0); MONOCYTES % (AUTO) 3.8 % (1.7-9.3); NEUTROPHILS # (AUTO) 4.4 K/uL (1.8-7.7); NEUTROPHILS % (AUTO) 85.4 % (42.2-75.2); PLATELET COUNT (AUTO) 41 K/uL (140-450); RED BLOOD CELL COUNT(AUTO) 3.63 MIL/uL (4.20-6.10); RED CELL DISTRIBUTION WIDTH 17.9 % (11.6-13.7); WHITE BLOOD COUNT (AUTO) 5.2 K/uL (4.8-10.8)
[2021-03-25] MEDS: BLOOD GLUCOSE MONITORING 1 DEV DEV MC SCH ×4 (05:58→17:29)
[2021-03-25 06:04] LABS: ANION GAP 12.1 (8-16); CARBON DIOXIDE 23.8 mmol/L (21-32); CHLORIDE 127 mmol/L (98-107); CREATININE 1.2 mg/dL (0.6-1.3); GLUCOSE 176 mg/dL (74-106); POTASSIUM 3.9 mmol/L (3.5-5.1); UREA NITROGEN, BLOOD 34 mg/dL (7-18)
[2021-03-25 06:06] LABS: MAGNESIUM 2.5 mg/dL (1.8-2.4); PHOSPHORUS 1.8 mg/dL (2.5-4.9)
[2021-03-25 06:08] LABS: SODIUM SERUM 159 mmol/L (136-145)
[2021-03-25 08:00] VITALS: BP 128/71
[2021-03-25] MEDS: TERAZOSIN 5 MG CAP PO SCH (08:27)
[2021-03-25] MEDS: PANTOPRAZOLE 40 MG INJ VIAL IVP SCH ×3 (08:27→21:40)
[2021-03-25] MEDS: CINACALCET 30 MG TAB PO SCH ×2 (08:28→21:41)
[2021-03-25] MEDS ORDERED: POTASSIUM PHOSPHATE 15 MM in NACL 0.9% 250 ML IV SCH (09:00)
[2021-03-25] MEDS: SODIUM PHOS / POTASSIUM PHOS 1 PKT PDR PO SCH ×3 (09:24→17:22)
[2021-03-25] MEDS ORDERED: fentaNYL citrate 0.05 MG/ML VIAL ONE (11:48)
[2021-03-25] MEDS ORDERED: MIDAZOLAM 5 MG/5 ML VIAL ONE (11:48)
[2021-03-25 12:00] VITALS: BP 118/68
--- NOTE | 2021-03-25 12:00 | NUR ---
Protonix not administered at this time. Med last administered @ 0830.
[2021-03-25] MEDS: MIDAZOLAM 2 MG/2 ML VIAL IVP ONE ×2 (12:12→14:26)
--- NOTE | 2021-03-25 12:12 | NUR ---
ATTEMPTED TO SEE PATIENT FOR PHYSICAL THERAPY TREATMENT HOWEVER PATIENT TRANSPORTED FOR O.R. PROCEDURE. WILL FOLLOW UP TOMORROW IF APPROPRIATE; RN AWARE.
[2021-03-25] MEDS: fentaNYL citrate 0.05 MG/ML VIAL IVP ONE ×2 (12:13→14:26)
--- NOTE | 2021-03-25 12:50 | NUR ---
Patient came back from OR s/p EGD with PEG placement. Patient drowsy but opens eyes and responds appropriately to questions. TPN resumed @ 50ml/hr to consume remaining volume in bag. Also resumed D5W @ 150ml/hr.
[2021-03-25] MEDS: INSULIN LISPRO SLIDING SCALE 100 UNITS/ML VIAL SUBQ PRN (14:34)
--- NOTE | 2021-03-25 15:00 | NUR ---
Initiated GT feeding of Glucerna 1.2 @ 30ml/hr. Pt resting in bed, drowsy, opens eyes when called, able to answer appropriately to questions.
[2021-03-25 16:00] VITALS: BP 133/86
--- NOTE | 2021-03-25 16:00 | NUR ---
GT residual 0ml. Increased feeding rate to 40ml/hr.
[2021-03-25] MEDS ORDERED: CRUSHER, PILL MC ONE (16:58)
[2021-03-25] MEDS: METOCLOPRAMIDE 10 MG/10 ML SYRP UDC GT SCH (17:22)
[2021-03-25 20:00] VITALS: BP 124/69
[2021-03-25] MEDS ORDERED: DEXTROSE 50% 720 ML, AMINO ACIDS 8.5% 720 ML IV SCH ×2 (20:00)
--- NOTE | 2021-03-25 20:00 | NUR ---
RECEIVED BEDSIDE REPORT FROM DAY RN FOR CONTINUITY OF CARE . PT LAYING IN BED ASLEEP. PT AROUSABLE TO NAME AND TOUCH. PT IS DRY CREEK, HEARING AIDE CHARGING AT THIS TIME. PT NOT IN ANY DISTRESS AND NO COMPLAIN AT THIS TIME. NOTED LEFT ARM WITH REDNESS , BLISTERS AND SOME BLISTERS POPPED AND YELLOWISH DRAINAGE NOTED ON THE CHUCKS. IVF AND TPN INFUSING ORDERED. GTF INFUSING ORDERED. NOTED PT HAS 200 CC RESIDUAL. STOPPED THE GTF FOR NOW AND WILL RESUME IF THE RESIDUAL IS <100CC. VSS, AFEBRILE, SATING 96% ON 3L/NC. SR WITH BBB ON OFFICE ANALYST, HR-82. FALL PRECAUTION IMPLEMENTED. INSTRUCTED THE PT TO CALL FOR ASSISTANCE AT ALL TIMES. PT VERBALIZED UNDERSTANDING WITH THE POC. CALL LIGHT WITHIN REACH. WILL CONTINUE POC AND MONITORING.
--- NOTE | 2021-03-25 22:00 | NUR ---
ALL DUE MEDS GIVEN AND PT TOLERATED IT WELL. NO COMPLAIN FROM THE PT. NO ADVERSE DRUG REACTION NOTED. WILL CONTINUE TO OBSERVE.
--- NOTE | 2021-03-26 | NUR ---
PT VITAL SIGNS STABLE, AFEBRILE, SATING 97% ON 3L/NC. SR WITH BBB ON MANAGER MOUNTAIN, HR-96. NOT IN ANY DISTRESS AND NO COMPLAIN AT THIS TIME. CALL LIGHT WITHIN REACH. WILL CONTINUE OBSERVATION.
[2021-03-26] MEDS: INSULIN LISPRO SLIDING SCALE 100 UNITS/ML VIAL SUBQ PRN ×4 (00:03→17:39)
[2021-03-26] MEDS: BLOOD GLUCOSE MONITORING 1 DEV DEV MC SCH ×4 (00:04→17:35)
--- NOTE | 2021-03-26 02:00 | NUR ---
PT ASLEEP. VISIBLE CHEST RISE AND FALL NOTED. NOT IN ANY DISTRESS. SAFETY MEASURES IN PLACE. WILL CONTINUE TO OBSERVE.
[2021-03-26 02:42] VITALS: BP 108/69
--- NOTE | 2021-03-26 02:55 | NUR ---
PATIENTS BROTHER CALLED AND UPDATED HIM WITH THE PATIENT CONDITION.
[2021-03-26 04:00] VITALS: BP 131/67
--- NOTE | 2021-03-26 04:00 | NUR ---
PT VITAL SIGNS STABLE, AFEBRILE, SATING 96% ON 3L/NC. SR WITH BBB ON ART OBJECTS REPAIRER, HR-97. NOT IN ANY DISTRESS AND NO COMPLAIN AT THIS TIME. CALL LIGHT WITHIN REACH. WILL CONTINUE OBSERVATION.
--- NOTE | 2021-03-26 06:00 | NUR ---
NO ACUTE EVENT THROUGHOUT THE NIGHT. PATIENT STABLE NO SIGN AND SYMPTOMS OF DISTRESS NOTED. NO COMPLAIN AT THIS TIME. ALL NEEDS ATTENDED. CALL LIGHT WITHIN REACH. WILL ENDORSE THE PATIENT TO THE ONCOMING RN FOR CONTINUITY OF CARE.
[2021-03-26 06:06] LABS: BASOPHILS % (AUTO) 0.2 % (0.0-2.0); EOSINOPHILS # (AUTO) 0.1 K/uL (0-0.4); EOSINOPHILS % (AUTO) 2.9 % (0.0-4.0); HEMATOCRIT 31.1 % (36-52); HEMOGLOBIN 10.7 g/dL (12.0-18.0); LYMPHOCYTES # (AUTO) 0.4 K/uL (2.0-11.5); MEAN CORPUSCULAR HEMOGLOBIN 30 pg (27-31); MEAN CORPUSCULAR HGB CONC 34 g/dL (33-37); MEAN CORPUSCULAR VOLUME 87.6 fL (80-94); MONOCYTES # (AUTO) 0.1 K/uL (0.8-1.0); MONOCYTES % (AUTO) 3.1 % (1.7-9.3); NEUTROPHILS # (AUTO) 4.1 K/uL (1.8-7.7); NEUTROPHILS % (AUTO) 85.8 % (42.2-75.2); PLATELET COUNT (AUTO) 49 K/uL (140-450); RED BLOOD CELL COUNT(AUTO) 3.55 MIL/uL (4.20-6.10); RED CELL DISTRIBUTION WIDTH 18.1 % (11.6-13.7); WHITE BLOOD COUNT (AUTO) 4.8 K/uL (4.8-10.8)
[2021-03-26 06:23] LABS: ANION GAP 5.5 (8-16); CARBON DIOXIDE 26.1 mmol/L (21-32); CHLORIDE 121 mmol/L (98-107); CREATININE 1.1 mg/dL (0.6-1.3); GLUCOSE 196 mg/dL (74-106); POTASSIUM 3.6 mmol/L (3.5-5.1); SODIUM SERUM 149 mmol/L (136-145); UREA NITROGEN, BLOOD 30 mg/dL (7-18)
[2021-03-26 06:40] LABS: MAGNESIUM 2.2 mg/dL (1.8-2.4); PHOSPHORUS 2.3 mg/dL (2.5-4.9)
[2021-03-26] MEDS: METOCLOPRAMIDE 10 MG/10 ML SYRP UDC GT SCH ×3 (06:59→17:30)
[2021-03-26] MEDS: DEXTROSE 5% 1,000 ML IV SCH ×2 (07:02→14:18)
[2021-03-26] MEDS ORDERED: TERA5CAP8 PO (07:18)
[2021-03-26] MEDS ORDERED: SEN30 PO (07:18)
--- NOTE | 2021-03-26 07:28 | NUR ---
RECEIVED REPORT FROM PM SHIFT RN FOR CONTINUITY OF CARE. PT. STABLE.. . WITH NC 3LPM. GT FEEDING RUNNING @ 50ML /HR. TANYA MIDLINE D5 @ 50ML/HR RUNNING. ALL SAFETY MEASURES IN PLACED. WILL CONTINUE TO MONITOR THE PT.
[2021-03-26 08:00] VITALS: BP 104/73
--- NOTE | 2021-03-26 08:05 | NUR ---
ENDORSED PT TO DAY RN FOR CONTINUITY OF CARE. PATIENT STABLE. SIGNING OFF.
[2021-03-26] MEDS: CINACALCET 30 MG TAB PO SCH (09:15)
[2021-03-26] MEDS: TERAZOSIN 5 MG CAP PO SCH (09:15)
[2021-03-26] MEDS: PANTOPRAZOLE 40 MG INJ VIAL IVP SCH (09:18)
--- NOTE | 2021-03-26 09:20 | NUR ---
PT. STABLE, . RESTING IN THE BED, PT'S AT THE BEDSIDE. TALKING TO THE . SPEECH IS UNCLEAR.. ADMINISTEREDBREATHINGS EVEN AND UNLABORED. BED IN LOW POSITION. ALL SAFETY MEASURES IN PLACED. WILL CONTINUE TO MONITOR THE PT. SCHEDULED MEDICATION VIA FEEDING TUBE. NO RESIDUAL NOTED. NO N/V OBSERVED.
--- NOTE | 2021-03-26 11:33 | NUR ---
CALLED [facility] FOR TRANSPORT THEY SAID THAT THEIR UNABLE TO DISPLAY MANAGER PATIENT SINCE THEIR FULL ALREADY UNTIL MONDAY. CALLED [facility] AND SPOKE TO ENEDELIA. THEY WILL DISPLAY MANAGER PATIENT @ 6:30 PM OR EARLY POSSIBLE. SET UP DISPLAY MANAGER TIME.
[2021-03-26 12:00] VITALS: BP 110/79
--- NOTE | 2021-03-26 12:30 | NUR ---
WOUND CARE EVALUATION NOTES: REASON FOR EVALUATION: LEFT UPPER EXTREMITY BULLAE WOUND ASSESSMENT COMPLETED ON THIS 76 Y/O MALE ADMITTED TO [facility] FOR GENERALIZED WEAKNESS, HYPERNATREMIA, DEHYDRATION. PATIENT IS FROM SNF. PAST MEDICAL HISTORY INCLUDES ESOPHAGEAL CANCER, COPD, GERD, BPH. ALL ABOVE INFORMATION WAS OBTAINED FROM THE ADMISSION H&P. LABS ARE WBC 4.8, H/H 10.7/31.1, GLUCOSE 196. PATIENT IS AAOX2, VERBAL, FORGETFUL. SKIN IS WARM TO TOUCH. HAS GENERALIZED BILATERAL UPPER EXTREMITY AND LOWER EXTREMITIES EDEMA. ORAL MUCOSAL MEMBRANES DRY. RIGHT UPPER PICC LINE IN PLACE, DRESSING DRY AND INTACT. REQUIRES ASSISTANCE WITH TURNING. PLAN OF CARE AND PRESSURE PREVENTATIVE MEASURES DISCUSSED WITH PATIENT AND PRIMARY RN. PATIENT VERBALIZED UNDERSTANDING. REINFORCEMENT NEEDED. PATIENT ADMITTED WITH LEFT UPPER EXTREMITY MULTIPLE BULLAE. COMORBIDITIES RELATED TO FURTHER SKIN BREAKDOWN SUCH IMPAIRED OR DECREASED MOBILITY AND DECREASED FUNCTIONAL ABILITY, LOW ALBUMIN LEVEL AND S/S OF DEHYDRATION. INTEGUMENTARY: - LEFT MEDIAL HAND SKIN TEAR 5 X 5 X 0 CM FROM BULLAE POPPING OPEN. WOUND BED PINK, MINIMAL SEROUS DRAINAGE, NO ODOR. PERIWOUND COLOR REDDISH-PURPLE, INTACT, BRITTLE SKIN. - LEFT HAND MULTIPLE BULLAE INTACT, LARGEST MEASURING 8 X 7 X 0 CM. NO DRAINAGE, NO ODOR. MAGNO-WOUND REDDISH-PURPLE, BRITTLE SKIN. - LEFT FOREARM BLISTER INTAC MEASURING 1.5 X 2.0 X 0 CM. NO DRAINAGE, NO ODOR. MAGNO-WOUND REDDISH-PURPLE, BRITTLE SKIN. RECOMMENDATIONS: - LEFT MEDIAL HAND SKIN TEAR - CLEANSED WITH NS, PAT DRIED, APPLY VERSATEL DRESSING Q5 DAYS OR PRN IF SOILED. - LEFT HAND MULTIPLE BULLAE INTACT - CLEANSED WITH NS, PAT DRIED, APPLY VERSATEL DRESSING Q5 DAYS OR PRN IF SOILED. - LEFT FOREARM BLISTER INTACT - CLEANSED WITH NS, PAT DRIED, APPLY VERSATEL DRESSING Q5 DAYS OR PRN IF SOILED. - NO TAPE ON SKIN. - OFFLOAD BILATERAL HEELS BY PLACING BILATERAL HEEL PROTECTORS. - TURN AND REPOSITION PATIENT Q2H TO LEFT AND RIGHT SIDE TO OFFLOAD SACRALCOCCYX. - ASSESS AND MONITOR SKIN CONDITION DURING POSITION CHANGE. PLEASE PAY ATTENTION TO SACRALCOCCYX AND HEELS. - KEEP SKIN DRY AND CLEAN AT ALL TIMES. - RD CONSULT RECOMMENDATIONS DISCUSSED WITH PRIMARY RN. WILL FOLLOW-UP PATIENT Q7-10 DAYS AND PRN. PLEASE CONTACT WOUND CARE NURSE FOR ANY CONCERNS AND CHANGES IN WOUND CONDITION.
--- NOTE | 2021-03-26 12:45 | NUR ---
BLOOD SUGAR WAS CHECKED, WAS 163 ADMINISTERED INSULIN ACCORDING TO SLIDING SCALE. PT. TOLERATED WELL.ALL SAFETY MEASURES IN PLACED. WILL CONTINUE TO MONITOR THE PT.
--- NOTE | 2021-03-26 15:44 | NUR ---
PT. STABLE NC 3LPM. BREATHINGS EVEN AND UNLABORED. ALL SAFETY MEASURES IN PLACED. PT. HAS DISCHARGE ORDER TO [facility] [place]. CALLED FACILITY TO GIVE REPORT. SPOKE WITH RAJ LOBO. SAID WE HAVE NO ROOM AVAILABLE FOR NOW. SAID SHE WILL CALL ME BACK WITH INFORMATION. AVAITING FOR CALL BACK..
[2021-03-26 16:00] VITALS: BP 107/69
[2021-03-26] MEDS ORDERED: PIPE1SOL IV (17:27)
--- NOTE | 2021-03-26 18:00 | NUR ---
ARRANGED PT. DISCHARGE TO [facility]. PT. STABLE , NO ACUTE DISTRESS WITH NC 3 LPM. BREATHINGS NORMAL. SAFETY MEASURES IN PLACED. WILL CONTINUE TO MONITOR AND FOLLOW U P WITH DISCHARGE PROCESS.
--- NOTE | 2021-03-26 18:15 | NUR ---
PT. DISCHARGED TO [facility] R. NO. 15C ASSIGNED BED VIA [facility] .PT. STABLE WITHOUT DISTRESS. ALERT, AWAKE. ALL BELONGINGS SENT WITH PT. GIVEN TO AMBULANCE PERSONNEL. PICKED UP PT. AT 181. BY 2 AMBULANCE ESCORT.
== END 2021-03-26 18:24 | DRG 871 ==
LOC: MED 11:21 → MTU 18:41 → MMU 20:32
PROVIDERS: ADMIT Family Medicine; ATTEND Family Medicine
PROC: 05H933Z Insertion of Infusion Device into Right Brachial Vein, Percutaneous Approach (ICD-10-PCS; 2021-03-22)
PROC: 0DH63UZ Insertion of Feeding Device into Stomach, Percutaneous Approach (ICD-10-PCS; principal; 2021-03-25 12:00)
DX: A41.9 Sepsis, unspecified organism (principal); J69.0 Pneumonitis due to inhalation of food and vomit; N17.0 Acute kidney failure with tubular necrosis; E43 Unspecified severe protein-calorie malnutrition; G93.41 Metabolic encephalopathy; J96.01 Acute respiratory failure with hypoxia; E87.0 Hyperosmolality and hypernatremia; J44.1 Chronic obstructive pulmonary disease with (acute) exacerbation; L03.114 Cellulitis of left upper limb; C15.9 Malignant neoplasm of esophagus, unspecified; N40.0 Benign prostatic hyperplasia without lower urinary tract symptoms; K21.00 Gastro-esophageal reflux disease with esophagitis, without bleeding; E83.52 Hypercalcemia; E83.41 Hypermagnesemia; E86.0 Dehydration; R13.10 Dysphagia, unspecified; R74.01 Elevation of levels of liver transaminase levels; E78.2 Mixed hyperlipidemia; Z20.822 Contact with and (suspected) exposure to COVID-19; K44.9 Diaphragmatic hernia without obstruction or gangrene; R53.1 Weakness; S69.92XA Unspecified injury of left wrist, hand and finger(s), initial encounter; X58.XXXA Exposure to other specified factors, initial encounter; Y93.89 Activity, other specified; Y92.89 Other specified places as the place of occurrence of the external cause; Y99.8 Other external cause status; Z92.3 Personal history of irradiation; Z92.21 Personal history of antineoplastic chemotherapy; Z87.891 Personal history of nicotine dependence; Z68.33 Body mass index [BMI] 33.0-33.9, adult; Z79.899 Other long term (current) drug therapy
CPT/HCPCS: 36415; 70450; 71045; 73200; 76770; 80048; 80053; 80202; 82150; 82550; 82553; 82948; 83036; 83605; 83690; 83735; 83880; 84100; 84436; 84439; 84443; 84478; 84479; 84484; 85025; 85610; 85730; 87040; 87081; 92610; 93005; 96361; 96365; 96367; 97110; 97112; 97163-GP; 97530; 99291; C9113; J0692; J2250; J2543; J3010; J3370; J7030; J7060; J8597; Q0092

== ENCOUNTER 2021-04-01 17:09 | Inpatient (IN) | payer OTHER, SELFPAY ==
[~2021-04-01] VITALS: Ht 170.2 cm; Wt 95.3 kg
[~2021-04-01 17:09] MED LIST: MAGIC MOUTHWASH PO; PANT40EC PO; PIPE1SOL IV; SEN30 PO; TERA5CAP8 PO; [UNRECOGNIZED DRUG - CODE] PO; [UNRECOGNIZED DRUG - OTHER] PO
[2021-04-01 17:10] VITALS: BP 107/66
--- NOTE | 2021-04-01 17:10 | NUR ---
RT and Dr. Bland is evaluating pt at bedside
--- NOTE | 2021-04-01 17:10 | NUR ---
Pt to bed 07
--- NOTE | 2021-04-01 17:21 | NUR ---
76 y/o M SOFIE from [facility] c/o SOB x 2 hours. Per EMS, patient presented on 15L by NRB @ SpO2 83%. Pt SpO2 91% on 15L via NRB upon ER arrival. Lung sounds diminished bilaterally. PICC line Right upper arm. G-tube in place; adult diaper, pt presented with L hand bandage d/t blisters. HR 122. SpO2 91% on 15L by NRB. Tachypneic @ 44. Pt placed onto quality assurance monitor final and gown. Bed locked in lowest position, side rails x 2. PMH: COPD, DM, esophageal cancer, prostate issues, acute respiratory failure Meds: pantoprazole, lantus, glucacon, sensipar, tramadol, terazosin NKDA
--- NOTE | 2021-04-01 17:21 | NUR ---
EMT at bedside
--- NOTE | 2021-04-01 17:38 | NUR ---
ANDREAS De Dios and Pietro walked to lab and handed to CPT Cesia
--- NOTE | 2021-04-01 17:59 | NUR ---
RAD at bedside
--- NOTE | 2021-04-01 17:59 | NUR ---
SpO2 100% on 15L by NRB.
--- NOTE | 2021-04-01 18:25 | NUR ---
Lab at bedside
[2021-04-01 19:01] LABS: BASOPHILS % (AUTO) 0.5 % (0.0-2.0); EOSINOPHILS # (AUTO) 0.1 K/uL (0-0.4); EOSINOPHILS % (AUTO) 2.1 % (0.0-4.0); HEMATOCRIT 30.1 % (36-52); HEMOGLOBIN 10.1 g/dL (12.0-18.0); LYMPHOCYTES # (AUTO) 1.1 K/uL (2.0-11.5); LYMPHOCYTES % (AUTO) 17.7 % (20.5-51.1); MEAN CORPUSCULAR HEMOGLOBIN 30 pg (27-31); MEAN CORPUSCULAR HGB CONC 34 g/dL (33-37); MEAN CORPUSCULAR VOLUME 89.7 fL (80-94); MONOCYTES # (AUTO) 0.3 K/uL (0.8-1.0); MONOCYTES % (AUTO) 5.6 % (1.7-9.3); NEUTROPHILS # (AUTO) 4.6 K/uL (1.8-7.7); NEUTROPHILS % (AUTO) 74.1 % (42.2-75.2); PLATELET COUNT (AUTO) 122 K/uL (140-450); RED BLOOD CELL COUNT(AUTO) 3.36 MIL/uL (4.20-6.10); RED CELL DISTRIBUTION WIDTH 19.7 % (11.6-13.7); WHITE BLOOD COUNT (AUTO) 6.2 K/uL (4.8-10.8)
--- NOTE | 2021-04-01 19:06 | NUR ---
RT at bedside for ABG draw
[2021-04-01 19:23] LABS: ALBUMIN 1.5 g/dL (3.4-5.0); ANION GAP 5.3 (8-16); ASPARTATE AMINOTRANSFERASE 42 U/L (15-37); CARBON DIOXIDE 34.7 mmol/L (21-32); CHLORIDE 113 mmol/L (98-107); CREATININE 1.1 mg/dL (0.6-1.3); GLUCOSE 168 mg/dL (74-106); LIPASE 129 U/L (73-393); SODIUM SERUM 149 mmol/L (136-145); TOTAL BILIRUBIN 0.8 mg/dL (0.0-1.0); UREA NITROGEN, BLOOD 26 mg/dL (7-18)
--- NOTE | 2021-04-01 19:32 | NUR ---
Report and transfer of care endorsed to RAJ Cardona
[2021-04-01] MEDS ORDERED: AZITHROMYCIN 500 MG in DEXTROSE 5% 250 ML IV ONE (20:15)
[2021-04-01] MEDS ORDERED: PIPERACILLIN/TAZOBACTAM 3.375 GM in DEXTROSE 5% 50 ML IV ONE (20:15)
[2021-04-01] MEDS ORDERED: PIPERACILLIN/TAZOBACTAM 3.375 GM VIAL IV ONE (20:29)
[2021-04-01] MEDS ORDERED: AZITHROMYCIN 500 MG INJ VIAL IV ONE (21:14)
--- NOTE | 2021-04-01 21:43 | NUR ---
RT AT BEDSIDE
[2021-04-01] MEDS ORDERED: MORPHINE SULFATE 4 MG/ML SYR IVP ONE (22:25)
[2021-04-02] MEDS: NACL 0.9% 1,000 ML IV SCH ×3 (01:27→22:36)
--- NOTE | 2021-04-02 02:40 | NUR ---
PT'S BROTHER, ZANE, CALLED FOR PT UPDATE. "PLEASE TURN HEARING AID ON/OFF WHEN SPEAKING WITH PT" NEAL () [phone]
[2021-04-02] MEDS: PIPERACILLIN/TAZOBACTAM 3.375 GM in DEXTROSE 5% 50 ML IV SCH ×3 (05:00→22:09)
[2021-04-02] MEDS ORDERED: PIPERACILLIN/TAZOBACTAM 3.375 GM VIAL IV ONE ×2 (06:36→21:39)
--- NOTE | 2021-04-02 07:20 | NUR ---
TRANSFER OF CARE REPORT GIVEN TO DANITA ANTHONY
[2021-04-02 09:15] LABS: BASOPHILS # (AUTO) 0.1 K/uL (0.00-0.22); BASOPHILS % (AUTO) 0.9 % (0.0-2.0); EOSINOPHILS # (AUTO) 0.2 K/uL (0-0.4); EOSINOPHILS % (AUTO) 3.3 % (0.0-4.0); HEMATOCRIT 28.6 % (36-52); HEMOGLOBIN 9.5 g/dL (12.0-18.0); LYMPHOCYTES # (AUTO) 1.2 K/uL (2.0-11.5); LYMPHOCYTES % (AUTO) 18.5 % (20.5-51.1); MEAN CORPUSCULAR HEMOGLOBIN 30 pg (27-31); MEAN CORPUSCULAR HGB CONC 33 g/dL (33-37); MEAN CORPUSCULAR VOLUME 90.7 fL (80-94); MONOCYTES # (AUTO) 0.3 K/uL (0.8-1.0); MONOCYTES % (AUTO) 5.1 % (1.7-9.3); NEUTROPHILS # (AUTO) 4.7 K/uL (1.8-7.7); NEUTROPHILS % (AUTO) 72.2 % (42.2-75.2); PLATELET COUNT (AUTO) 112 K/uL (140-450); RED BLOOD CELL COUNT(AUTO) 3.15 MIL/uL (4.20-6.10); RED CELL DISTRIBUTION WIDTH 20.3 % (11.6-13.7); WHITE BLOOD COUNT (AUTO) 6.5 K/uL (4.8-10.8)
[2021-04-02 09:29] LABS: CARBON DIOXIDE 35.5 mmol/L (21-32); CHLORIDE 116 mmol/L (98-107); GLUCOSE 148 mg/dL (74-106); POTASSIUM 4.5 mmol/L (3.5-5.1); SODIUM SERUM 153 mmol/L (136-145); UREA NITROGEN, BLOOD 26 mg/dL (7-18)
[2021-04-02] MEDS ORDERED: FUROSEMIDE 40 MG/4 ML VIAL IVP SCH (10:50)
[2021-04-02] MEDS ORDERED: ALBUTEROL HFA MDI 90 MCG/ACTUATION 8 GM INH PRN (12:25)
[2021-04-02] MEDS ORDERED: POTASSIUM CHLORIDE 10 MEQ TABER PO PRN (12:25)
[2021-04-02] MEDS ORDERED: MAG SULF 2000 MG/WATER PREMIX 50 ML IV PRN (12:25)
--- NOTE | 2021-04-02 19:26 | NUR ---
RECIEVED REPORT FROM DANITA ANTHONY
--- NOTE | 2021-04-02 19:30 | NUR ---
RT AT BEDSIDE
--- NOTE | 2021-04-02 20:18 | NUR ---
RT AT BEDSIDE TO PROVIDE ORAL CARE AND SWITCH FROM BIPAP TO NASAL CANULA
--- NOTE | 2021-04-02 20:19 | NUR ---
NOVEL COVID SWAB COLLECTED AND WALKED TO LAB
[2021-04-02] MEDS ORDERED: LOVENOX 1MG/KG Q12H SUBQ SCH (21:00)
[2021-04-02] MEDS: ZINC SULF 220 MG CAP PO SCH (22:08)
[2021-04-02] MEDS: ENOXAPARIN 100 MG/ML SYR SUBQ SCH (22:14)
--- NOTE | 2021-04-02 22:18 | NUR ---
ADMITING DR APPROVED A MEAL FOR THE PATIENT. LEFT A MESSAGE W/ DIET/NUTRITION AND GAVE PT SOME APPLESAUCE IN THE MEANWHILE. PT WAS ABLE TO EAT W/O DIFFICULTY SWALLOWING
--- NOTE | 2021-04-03 02:32 | NUR ---
Patient appears to be resting comfortably in bed. Vital Signs within normal limits. Respirations even and unlabored. HOB RAISED, RAILS UP X2, PT IS RESTING COMFORTABLY DESPITE TACHYPNEA OF 22-24, NO COMPLAINT OF SOB, NO WHEEZES, AND NO ACCESSORY MUSCLE USE.
[2021-04-03] MEDS ORDERED: PIPERACILLIN/TAZOBACTAM 3.375 GM VIAL IV ONE ×3 (05:11→21:51)
[2021-04-03] MEDS: PIPERACILLIN/TAZOBACTAM 3.375 GM in DEXTROSE 5% 50 ML IV SCH ×3 (05:25→22:25)
[2021-04-03] MEDS: NACL 0.9% 1,000 ML IV SCH (06:15)
--- NOTE | 2021-04-03 07:30 | NUR ---
RECEIVED PT IN HOSPITAL BED AOX4. DENIES PAIN OR DISCOMFORT. AFIB ON MONITOR. PICC LINE TO TANYA. NO ACUTE DISTRESS NOTED. SAFETY MAINTAINED.
--- NOTE | 2021-04-03 08:54 | NUR ---
RECEIVED ON SUPPLEMENTAL OXYGEN AT 10 LPM VIA HIGH FLOW BUBBLE HUMIDIFIER WITH CURAPLEX NASAL CANNULA SATURATION 100% TITRATED FIO2 TO 7 LPM DANITA/RAJ NOTIFIED
[2021-04-03] MEDS: ZINC SULF 220 MG CAP PO SCH ×2 (09:00→22:25)
[2021-04-03] MEDS: VITAMIN D 400 IU TAB PO SCH (09:00)
[2021-04-03] MEDS: ASCORBIC ACID 500 MG TAB PO SCH (09:00)
[2021-04-03] MEDS: ENOXAPARIN 100 MG/ML SYR SUBQ SCH ×2 (09:10→22:31)
[2021-04-03 10:12] LABS: BASOPHILS % (AUTO) 0.5 % (0.0-2.0); EOSINOPHILS # (AUTO) 0.2 K/uL (0-0.4); EOSINOPHILS % (AUTO) 4.2 % (0.0-4.0); HEMATOCRIT 28.1 % (36-52); HEMOGLOBIN 9.3 g/dL (12.0-18.0); LYMPHOCYTES # (AUTO) 0.9 K/uL (2.0-11.5); LYMPHOCYTES % (AUTO) 17.2 % (20.5-51.1); MEAN CORPUSCULAR HEMOGLOBIN 30 pg (27-31); MEAN CORPUSCULAR HGB CONC 33 g/dL (33-37); MEAN CORPUSCULAR VOLUME 90.3 fL (80-94); MONOCYTES # (AUTO) 0.3 K/uL (0.8-1.0); MONOCYTES % (AUTO) 5.2 % (1.7-9.3); NEUTROPHILS # (AUTO) 3.7 K/uL (1.8-7.7); NEUTROPHILS % (AUTO) 72.9 % (42.2-75.2); PLATELET COUNT (AUTO) 113 K/uL (140-450); RED BLOOD CELL COUNT(AUTO) 3.11 MIL/uL (4.20-6.10); RED CELL DISTRIBUTION WIDTH 19.8 % (11.6-13.7); WHITE BLOOD COUNT (AUTO) 5.1 K/uL (4.8-10.8)
[2021-04-03 10:46] LABS: ALBUMIN 1.4 g/dL (3.4-5.0); ANION GAP 5.3 (8-16); ASPARTATE AMINOTRANSFERASE 31 U/L (15-37); CARBON DIOXIDE 33.9 mmol/L (21-32); CHLORIDE 122 mmol/L (98-107); GLUCOSE 127 mg/dL (74-106); LACTATE DEHYDROGENASE 339 U/L (85-227); MAGNESIUM 2.2 mg/dL (1.8-2.4); PHOSPHORUS 2.4 mg/dL (2.5-4.9); POTASSIUM 4.2 mmol/L (3.5-5.1); TOTAL BILIRUBIN 0.9 mg/dL (0.0-1.0); UREA NITROGEN, BLOOD 25 mg/dL (7-18)
[2021-04-03 10:52] LABS: SODIUM SERUM 157 mmol/L (136-145)
--- NOTE | 2021-04-03 11:30 | NUR ---
DR BENITEZ AT BEDSIDE FOR CONSULT.
[2021-04-03] MEDS: NACL 0.45% 1,000 ML IV SCH (13:30)
--- NOTE | 2021-04-03 17:05 | NUR ---
PICTURES TAKEN TO LEFT HAND. PICC LINE NOTED OUT WHEN TURNING PT. NEW IV INSERTED TO LEFT AC #20GUAGE VIA US.
--- NOTE | 2021-04-03 18:58 | NUR ---
PT BACK FROM CT. NO ACUTE DISTRESS NOTED.
--- NOTE | 2021-04-03 19:28 | NUR ---
AKHIL CALLED REQUESTING UPDATE
[2021-04-04] MEDS: NACL 0.45% 1,000 ML IV SCH (04:09)
--- NOTE | 2021-04-04 05:17 | NUR ---
BROTHER ZANE GIBSON REQUESTED UPDATE [phone]
[2021-04-04] MEDS ORDERED: PIPERACILLIN/TAZOBACTAM 3.375 GM VIAL IV ONE (05:37)
[2021-04-04] MEDS: PIPERACILLIN/TAZOBACTAM 3.375 GM in DEXTROSE 5% 50 ML IV SCH ×3 (05:44→21:00)
[2021-04-04 07:18] LABS: BASOPHILS % (AUTO) 0.8 % (0.0-2.0); EOSINOPHILS # (AUTO) 0.2 K/uL (0-0.4); HEMATOCRIT 27.7 % (36-52); HEMOGLOBIN 9.3 g/dL (12.0-18.0); LYMPHOCYTES # (AUTO) 0.9 K/uL (2.0-11.5); LYMPHOCYTES % (AUTO) 21.1 % (20.5-51.1); MEAN CORPUSCULAR HEMOGLOBIN 30 pg (27-31); MEAN CORPUSCULAR HGB CONC 34 g/dL (33-37); MEAN CORPUSCULAR VOLUME 90.3 fL (80-94); MONOCYTES # (AUTO) 0.2 K/uL (0.8-1.0); MONOCYTES % (AUTO) 5.1 % (1.7-9.3); PLATELET COUNT (AUTO) 106 K/uL (140-450); RED BLOOD CELL COUNT(AUTO) 3.07 MIL/uL (4.20-6.10); RED CELL DISTRIBUTION WIDTH 20.2 % (11.6-13.7); WHITE BLOOD COUNT (AUTO) 4.4 K/uL (4.8-10.8)
--- NOTE | 2021-04-04 07:23 | NUR ---
Report and continuation of care received from RAJ Cardona
--- NOTE | 2021-04-04 07:23 | NUR ---
GAVE REPORT TO SYLVIA ANTHONY
[2021-04-04 07:39] LABS: ALBUMIN 1.4 g/dL (3.4-5.0); ANION GAP 3.4 (8-16); ASPARTATE AMINOTRANSFERASE 38 U/L (15-37); CARBON DIOXIDE 35.3 mmol/L (21-32); CHLORIDE 119 mmol/L (98-107); CREATININE 0.9 mg/dL (0.6-1.3); GLUCOSE 122 mg/dL (74-106); LACTATE DEHYDROGENASE 333 U/L (85-227); MAGNESIUM 2.2 mg/dL (1.8-2.4); PHOSPHORUS 2.1 mg/dL (2.5-4.9); POTASSIUM 3.7 mmol/L (3.5-5.1); SODIUM SERUM 154 mmol/L (136-145); TOTAL BILIRUBIN 0.8 mg/dL (0.0-1.0); UREA NITROGEN, BLOOD 21 mg/dL (7-18)
--- NOTE | 2021-04-04 07:44 | NUR ---
Patient presents asleep in high-fowlers with high flow O2, classroom monitor in place. Pt noted with IV to left upper chest; patent at this time. SpO2 99% on high flow. Bed locked in lowest position, side rails x2.
--- NOTE | 2021-04-04 09:04 | NUR ---
Called Avanin states to give 5 minutes to recontact d/t med rounds.
--- NOTE | 2021-04-04 09:23 | NUR ---
Patient will be admitted to care of Dr. Gil. Admited to Telemetry. Will go to room 118. Belongings list completed. Report to RAJ Solis
--- NOTE | 2021-04-04 09:23 | NUR ---
Report given to RAJ Solis. All questions answered.
--- NOTE | 2021-04-04 09:28 | NUR ---
Pt A&Ox4, Accuchek 106
--- NOTE | 2021-04-04 10:05 | NUR ---
PT ARRIVED IN [facility]. TELE MONITOR ATTACHED. 0900 MEDICATIONS NOT RECEIVED BEFORE TRANSFER. WILL ADMINISTER. CALL LIGHT IN REACH. ALL SAFETY MEASURES IN PLACE Addendum: 04/04/21 at 1006 by Janell Dietz RN RN 8L FARHANA
--- NOTE | 2021-04-04 10:16 | NUR ---
PATIENT HAS BEEN SCREENED AND CATEGORIZED MODERATE NUTRITION RISK. PATIENT WILL BE SEEN WITHIN 3-5 DAYS OF ADMISSION. 04/04/2021-04/06/[address]
[2021-04-04] MEDS: VITAMIN D 400 IU TAB PO SCH (10:32)
[2021-04-04] MEDS: ASCORBIC ACID 500 MG TAB PO SCH (10:32)
[2021-04-04] MEDS: ENOXAPARIN 100 MG/ML SYR SUBQ SCH (10:33)
[2021-04-04] MEDS: ZINC SULF 220 MG CAP PO SCH ×2 (10:33→21:00)
--- NOTE | 2021-04-04 11:06 | NUR ---
PT CLEANED AND CHANGED. LARGE BM. EDEMA +1 IN BOTH UPPER EXTREMITIES. PT HAS ONE HEARING AID IN THE LEFT EAR, STATED THAT BATTERY . EYE GLASSES ON PT. RIGHT HAND DRESSING INTACT. WOUND TO RIGHT FOREARM. ALL SAFETY MEASURES IN PLACE. CALL LIGHT IN REACH.
--- NOTE | 2021-04-04 11:42 | NUR ---
SPOKE TO DR. MCINTOSH. NEW ORDER FOR SHANITA
[2021-04-04 12:00] VITALS: BP 120/65
[2021-04-04] MEDS ORDERED: ALBUMIN HUMAN 25% 150 ML IV ONE (15:40)
[2021-04-04 16:00] VITALS: BP 112/70
--- NOTE | 2021-04-04 16:30 | NUR ---
PT ATTEMPTING TO GET OUT OF BED. PT REORIENTED AND ASKED TO STAY IN BED AND REMINDED THAT THEY HAVE A DIAPER ON FOR RESTROOM USE. WILL NOTIFY MD FOR PT EVAL.
[2021-04-04] MEDS: DEXTROSE 5% 1,000 ML IV SCH (16:38)
[2021-04-04] MEDS ORDERED: LORazepam 2 MG/ML VIAL IM/IVP PRN (18:30)
[2021-04-04] MEDS ORDERED: LORazepam 2 MG/ML VIAL ONE (18:40)
--- NOTE | 2021-04-04 18:46 | NUR ---
PT PULLED OUT IV WHEN ATTEMPTING TO GIVE ATIVAN. ALL SAFETY MEASURES IN PLACE
--- NOTE | 2021-04-04 18:58 | NUR ---
WHILE ATTEMPTING TO GIVE PT ATIVAN. PT THREW OBJECTS AT MYSELF AND THE OTHER NURSE AND ATTEMPTED TO BITE US. AFTER ADMINISTRATION, PT WAS REORIENTED AND GIVEN FOOD TRAY. RESTRAINTS ARE IN ROOM BUT HAVE NOT BEEN ADMINISTERED. CALL LIGHT IN REACH. ALL SAFETY MEASURES IN PLACE
[2021-04-04] MEDS: RIVAROXABAN 15 MG TAB PO SCH (21:00)
--- NOTE | 2021-04-05 | NUR ---
ROUNDS DONE, PT CONTINUE TO REFUSE TO BE HOKED UP TO THE FEEDING TUBE. EXPLAINED TO PT THAT HE NEEDS THE FEEDING FOR NUTRITION, DUE TO PT CANNOT SWALLOW AT THIS TIME, PT CONTINUE TO REFUSE TUBE FEEDING. ALL FALLS AND DROPLET PRECAUTIONS IN PLACE. Addendum: 04/06/21 at 0334 by Tierra Fink RN WRONG DATE
--- NOTE | 2021-04-05 00:44 | NUR ---
PATIENT AWAKE CONFUSE CAN BE COMBATIVE. PATIENT TRIED TO HIT ME ONCE WHEN I WAS PUTTING THE PILLOW BEHIND HIS HEAD.PATIENT REFUSE HIS VITALS TO BE TAKEN. PATIENT REFUSE TO HAVE A IV STARTED HE PULLED OUT HIS IV ON DAYS. WE MOVE THE PATIENT TO ROOM 117 DUE TO NO BLINDS IN . WHEN CLEANING THE PATIENT PATIENT DOES NOT FOLLOW COMMAND HE TRIES TO KICK YOU HIT YOU VERY CONFUSE. PATIENT HAS A G-TUBE. THAT IS CLAMPED. OBSERVED LEFT ARM VERY SWOLLEN PLUS HANDS HAS A DRSG. ON LEFT HAND WHICH PATIENT PICKING HIS HAND. PATIENT DOES NOT HAVE 02 ON. BUT DOESNT APPEAR TO HAVE SHORTNESS OF BREATH.PATIENT REFUSE HIS MEDS AND I COULD NOT HANG ZOSYN.
[2021-04-05] MEDS: PIPERACILLIN/TAZOBACTAM 3.375 GM in DEXTROSE 5% 50 ML IV SCH ×3 (05:00→21:00)
--- NOTE | 2021-04-05 05:13 | NUR ---
PUT DRSG BACK ON LEFT ARM AND HAND PATIENT TOOK OFF THIS A.M WHEN I WENT IN ROOM TO PUT DRSG BACK ON PATIENT WENT TO HIT ME. PATIENT STILL REFUSES IV TO BE PUT IN AND REFUSE VITAL SIGNS. PATIENT PICKING SKIN OFF LEFT HAND.
[2021-04-05 07:39] LABS: BASOPHILS % (AUTO) 0.8 % (0.0-2.0); EOSINOPHILS # (AUTO) 0.2 K/uL (0-0.4); HEMATOCRIT 28.3 % (36-52); HEMOGLOBIN 9.6 g/dL (12.0-18.0); LYMPHOCYTES # (AUTO) 1.1 K/uL (2.0-11.5); LYMPHOCYTES % (AUTO) 20.5 % (20.5-51.1); MEAN CORPUSCULAR HEMOGLOBIN 31 pg (27-31); MEAN CORPUSCULAR HGB CONC 34 g/dL (33-37); MEAN CORPUSCULAR VOLUME 89.9 fL (80-94); MONOCYTES # (AUTO) 0.3 K/uL (0.8-1.0); MONOCYTES % (AUTO) 5.2 % (1.7-9.3); NEUTROPHILS # (AUTO) 3.7 K/uL (1.8-7.7); NEUTROPHILS % (AUTO) 70.5 % (42.2-75.2); PLATELET COUNT (AUTO) 120 K/uL (140-450); RED BLOOD CELL COUNT(AUTO) 3.15 MIL/uL (4.20-6.10); RED CELL DISTRIBUTION WIDTH 20.2 % (11.6-13.7); WHITE BLOOD COUNT (AUTO) 5.3 K/uL (4.8-10.8)
--- NOTE | 2021-04-05 07:56 | NUR ---
RECIEVED REPORT FROM CLEAN OUT DRILLER HELPER NURSE PEDRO LUIS, PATIENT IN BED, AX0, PATIENT IS CONFUSED, IN ROOM AIR, NO SOD NOTED, PATIENT REFUSE TO PUT NASAL CANULA, SAT 95% PATIENT HAS NO IV , PER CLEAN OUT DRILLER HELPER NURSE PATIENT REFUSED IV , WILL TRY TO PUT ONE IF HE AGREE, PATIENT HAS A G TUBE, CLAMPED , PATIENT LEFT HAND SWOLLEN AND HAS SKIN TEAR WITH SOME BLOOD, CLEANED AND RAPED, PATIENT TRY TO GET OUT OF BED ,EXPLAIN TO PATIENT NOT TO GET OUT OF BED AND CALL FOR ANY HEP OR NEED CALLS LIGHT WITHIN REACH. ALL SAFETY MEASURES ON PLACE.
[2021-04-05 07:57] LABS: ALBUMIN 1.6 g/dL (3.4-5.0); ANION GAP 4.8 (8-16); ASPARTATE AMINOTRANSFERASE 44 U/L (15-37); CARBON DIOXIDE 31.5 mmol/L (21-32); CHLORIDE 121 mmol/L (98-107); CREATININE 0.8 mg/dL (0.6-1.3); GLUCOSE 102 mg/dL (74-106); LACTATE DEHYDROGENASE 370 U/L (85-227); PHOSPHORUS 1.2 mg/dL (2.5-4.9); POTASSIUM 3.3 mmol/L (3.5-5.1); SODIUM SERUM 154 mmol/L (136-145); TOTAL BILIRUBIN 0.9 mg/dL (0.0-1.0); UREA NITROGEN, BLOOD 16 mg/dL (7-18)
[2021-04-05 08:00] VITALS: BP 131/83
[2021-04-05] MEDS: VITAMIN D 400 IU TAB PO SCH (09:25)
[2021-04-05] MEDS: RIVAROXABAN 15 MG TAB PO SCH ×2 (09:25→21:00)
[2021-04-05] MEDS: ZINC SULF 220 MG CAP PO SCH ×2 (09:26→21:00)
[2021-04-05] MEDS: ASCORBIC ACID 500 MG TAB PO SCH (09:27)
--- NOTE | 2021-04-05 09:30 | NUR ---
PATIENT IN BED CONFUSED, GOT MORNING MEDICATION ADMINISTRATED TOLERATED WELL, PATIENT FAMILY MEMBER CALLED ASKED ABOUT HEARING AID, HEARING AID NEXT TO PATIENT BED ON THE ASP NET MVC DEVELOPER, THERE IS 3 HEARING AID A PHONE GLASSES AND ASP NET MVC DEVELOPER . PATIENT STILL REFUSING IV AND NASAL CANULA, EXPLAINED TO PATIENT THE IMPORTANCE OF HAVING IT PATIENT STILL REFUSING, INFORMED THE DR, CALLS LIGHT WITHIN REACH, AL SAFETY MEASURES ON PLACE Addendum: 04/05/21 at 1613 by Breezy Yancey RN RN PATIENT KEEP REMOVING HIS EQUIPMENT ASSOCIATE, TRY TO PUT IT BACK AND EDUCATED THE PATIENT ABOUT KEEPING HE MONITOR, STILL REFUSING, DR IS AWARE
[2021-04-05] MEDS ORDERED: PIPE1SOL IV (10:59)
--- NOTE | 2021-04-05 11:35 | NUR ---
PATIENT IN BED NO COMPLAINS, GOT CLEANED AND CHANGED, PATIENT IS KICKING AND AGGRESSIVE, CALLS LIGHT WITHIN REACH, ALL SAFETY MEASURES ON PLACE
[2021-04-05] MEDS: DEXTROSE 5% 1,000 ML IV SCH ×2 (11:45→17:05)
[2021-04-05 12:00] VITALS: BP 130/75
--- NOTE | 2021-04-05 12:06 | NUR ---
PATIENT ASLEEP IN BED, SPO2 86-89% ON ROOM AIR. TRIED PLACING NC ON PATIENT BUT PT KEPT SMACKING MY HAND AWAY AND MOVING HIS HEAD. EXPLAINED TO PT HE NEEDED THE O2 BUT PT KEPT REFUSING.
--- NOTE | 2021-04-05 12:20 | NUR ---
WOUND CARE EVALUATION NOTE: WOUND ASSESSMENT TO LEFT HAND DONE. LEFT UPPER EXTREMITY CELLULITIS ERYTHEMA, SWELLING AND BLISTERING SKIN TO HAND AND FINGERS. OPEN BLISTERING SKIN TO DORSAL HAND 4X5CM SUPERFICIAL DEPTH, MOIST NO ODOR, HAND AND FINGERS ,+2 EDEMA. PT IS CONFUSE. POC DISCUSSED WITH PRIMARY RN. RECOMMENDATIONS: -CLEANSE LEFT HAND, FINGERS WITH NS, PAT DRY APPLY XEROFORM DRESSING, COVER WITH DRY DRESSING AND WRAP WITH KERLIX ROLLS 3X/WEEK ON MWF. -ELEVATED LEFT UPPER EXTREMITY -TURN AND REPOSITION PATIENT Q 2H -ASSESS AND MONITOR SKIN CONDITION DURING POSITION CHANGE -OFFLOAD BILATERAL HEELS BY PLACING PILLOWS UNDER CALVES AT ALL TIMES, UNLESS OTHERWISE CONTRAINDICATED -PRESSURE REDISTRIBUTION SURFACE AND OFFLOADING SACRALCOCCYX -KEEP SKIN CLEAN AND DRY AT ALL TIMES. PLEASE NOTIFIED WOUND CARE NURSE FOR ANY CHANGE OF SKIN CONDITION
[2021-04-05] MEDS: NON ADHERENT DRESSING TP SCH (13:00)
--- NOTE | 2021-04-05 13:00 | NUR ---
DC PLANNING PATIENT IS A 76 YEAR OLD MALE ADMITTED TO THE [facility]/ED ON 04/02/2021 DUE TO SHORTEST OF BREATH. SW MEET WITH PATIENT AT BEDSIDE TO ATTEMPT TO COLLECT HIS COLLATERAL INFORMATION. PATIENT WAS AWAKE AN ALERT BUT UNABLE TO COMMUNICATE HIS NEEDS AND WANTS. ANTONIA THEN CONTACTED HIS ANTONIO BALDWIN VIA TELEPHONIC CALL AT HOME AND CELL TO DISCUSS HIS INFORMATION. PER PATIENT HAS NO ADVANCE DIRECTIVES AND REFUSED ANY INFORMATION PROVIDED BY ANTONIA. PER SHE IS HIS EMERGENCY CONTACT AND MEDICAL DECISIONS MAKER.PER PATIENT WAS SEND TO [facility] SINCE HIS LAST HOSPITALIZATION AND SHE WOULD LIKE PATIENT TO GO TO THE SAME FACILITY AFTER HIS DC FROM [facility]. ANTONIA CONTACTED [facility] [phone] TO DISCUSSED PATIENT'S RETURN TO THEIR FACILITY AFTER HIS DC. PER HUYEN PATIENT IS ABLE TO RETURN TO THEIR FACILITY WHEN READY FOR DISCHARGE. ANTONIA THANKED HER FOR THE INFORMATION AND WILL FOLLOW UP NEEDED.
--- NOTE | 2021-04-05 13:20 | NUR ---
PATIENT IN BED NO COMPLAINS NO SOD NOTED, CALLS LIGHT WITHIN REACH, ALL SAFETY MEASURES ON PLACE Addendum: 04/05/21 at 1614 by Breezy Yancey RN RN WOUND CARE DONE BY WOUND CARE NURSE
--- NOTE | 2021-04-05 13:20 | NUR ---
04/05/21 RD INITIAL ASSESSMENT COMPLETED PLEASE REFER TO NUTRITION ASSESSMENT UNDER CARE ACTIVITY FOR ESTIMATED NUTRITIONAL NEEDS. 1. CONSIDER JEVITY 1.2 @70ML/HR, FWF 300ML, Q6H -PROVIDES 2016 KCALS AND 93GM PRO, MEETING 100% KCALS AND PRO NEEDS 2. RD TO FOLLOW-UP 2-3 DAYS, HIGH RISK REVIEWED BY KEVIN ORTIZ RD
--- NOTE | 2021-04-05 15:39 | NUR ---
PATIENT IN BED NO COMPLAINS NO SOD NOTED, CALLS LIGHT WITHIN REACH, ALL SAFETY MEASURES ON PLACE
[2021-04-05 16:00] VITALS: BP 142/86
--- NOTE | 2021-04-05 17:35 | NUR ---
PATIENT IN BED NO COMPLAINS NO SOD NOTED, PATIENT KEEP REMOVING FISH HATCHERY ASSISTANT, EXPLAINED TO PATIENT TO KEEP THE FISH HATCHERY ASSISTANT, PATIENT STILL REFUSING , DR IS AWARE CALLS LIGHT WITHIN REACH, ALL SAFETY MEASURES ON PLACE
--- NOTE | 2021-04-05 19:50 | NUR ---
RECEIVED REPORT AT BEDSIDE, PT IS CONFUSED HAS NO IV SITE BECAUSE HE IS REFUSING TO HAVE IV SITE PLACED. SHE REPORTS THAT PT IS CONFUSED AND EASILY AGITATED. HE IS LYING IN BED AOX1 ON ROOM AIR, PT ALSO HAS GT FEEDING JEVITY RUNNING AT 70MLS/HR. RADIOLOGY CALLED WILL BE UP LATER TO TRANSPORT PT DOWN TO HAVE A HEAD CT DONE.
--- NOTE | 2021-04-05 20:00 | NUR ---
PT REFUSES TO HAVE V/S DONE. PT KEEPS ASKING FOR JAIRON, INFORMED PT THAT JAIRON DOESN'T WORK IN THIS UNIT. PT DID NOT RESPOND. UPDATED BROTHER ZANE GIBSON.
--- NOTE | 2021-04-05 20:15 | NUR ---
FULL BEDIDE REPORT GIVEN TO CLASS C TRUCK DRIVER NURSE
--- NOTE | 2021-04-05 20:37 | NUR ---
1921 suggested to patient to take the albuterol inhaler but pt refused. patient is on room air at 93% saturation
--- NOTE | 2021-04-05 21:51 | NUR ---
PT REFUSED ALL HELP, REFUSES TO HAVE IV SITE PLACED AND REFUSED ALL ORDERED MEDICATION WELL SUPPLEMENTAL 02. PT HAD HEARING AID ON HIS ABDOMEN, ASKED PT IS I COULD PLACE IN EAR OR TO BE CHARGED SO IT WON'T BE LOST AND HE SAID NO.
--- NOTE | 2021-04-05 22:30 | NUR ---
RECEIVED A CALL FORM RADIOLOGY THAT PT HAS ORDERED FOR HEAD CT SCAN. PT WENT DOWN TO CT VIA GURNEY, G TUBE FEEDING WAS DISCONNECTED AT THIS TIME. WHEN HE RETUNED, PT CONTINUE TO REFUSE IV SITE MEDICATION AND V/S. PT ALSO REFUSED TO HAVE FEEDING RECONNECTED. EXPLAINED TO PT THAT WE NEED TO HAVE ALL THESE MEDICAL INTERVENTIONS TO HELP HIM IMPROVE, BUT PT CONTINUES TO REFUSE, HE DID HOWEVER, C/O OF SOB AND WAS WILLING TO WEAR THE N/C FOR SUPPLEMENTAL IV SITE. ALL ORDERED PRECAUTIONS IN PLACE.
--- NOTE | 2021-04-06 | NUR ---
ROUNDS DONE, PT CONTINUE TO REFUSE TO BE HOKED UP TO THE FEEDING TUBE. EXPLAINED TO PT THAT HE NEEDS THE FEEDING FOR NUTRITION, DUE TO PT CANNOT SWALLOW AT THIS TIME, PT CONTINUE TO REFUSE TUBE FEEDING. ALL FALLS AND DROPLET PRECAUTIONS IN PLACE. PT ALSO REFUSED TO BE TURNED OR CHANGED AND REFUSED VITAL SIGNS.
[2021-04-06 04:00] VITALS: BP 123/69
--- NOTE | 2021-04-06 04:00 | NUR ---
PT WAS TURNED, CLEANED AND REPOSITIONED IN BED. PT REMAINS ON SUPPLEMENTAL 02 5 LITERS VIA N/C. V/S FOLLOWS: T 97.8 P 101 R 99% ON 4 LITERS VIA N/C B/P 123/69 02 99% WITH 4 LITERS VIA N/C. HOB UP 45% GT RESTARTED AT 70MLS/HR ORDERED , ALL ORDERED PRECAUTIONS IN PLACE.
--- NOTE | 2021-04-06 04:30 | NUR ---
PT IN BED JEVITY RUNNING ORDERED HE REMAINS ON 3 LITERS VIA N/C. PT WAS TURNED, CHANGED AND REPOSITIONED IN BED V/S FOLLOWS: T T 97.1 P 85 R 18 B/P 108/71 02 100% ON 3 LITERS VIA N/C. ALL ORDERED PRECAUTIONS IN PLACE.
[2021-04-06] MEDS: PIPERACILLIN/TAZOBACTAM 3.375 GM in DEXTROSE 5% 50 ML IV SCH ×2 (05:00→13:00)
[2021-04-06] MEDS: DEXTROSE 5% 1,000 ML IV SCH ×2 (06:25→17:55)
[2021-04-06 07:29] LABS: BASOPHILS % (AUTO) 0.6 % (0.0-2.0); EOSINOPHILS # (AUTO) 0.1 K/uL (0-0.4); EOSINOPHILS % (AUTO) 2.7 % (0.0-4.0); LYMPHOCYTES # (AUTO) 1.1 K/uL (2.0-11.5); LYMPHOCYTES % (AUTO) 21.6 % (20.5-51.1); MEAN CORPUSCULAR HEMOGLOBIN 31 pg (27-31); MEAN CORPUSCULAR HGB CONC 34 g/dL (33-37); MONOCYTES # (AUTO) 0.4 K/uL (0.8-1.0); MONOCYTES % (AUTO) 7.4 % (1.7-9.3); NEUTROPHILS # (AUTO) 3.4 K/uL (1.8-7.7); NEUTROPHILS % (AUTO) 67.7 % (42.2-75.2); PLATELET COUNT (AUTO) 119 K/uL (140-450); RED BLOOD CELL COUNT(AUTO) 3.29 MIL/uL (4.20-6.10); RED CELL DISTRIBUTION WIDTH 21.2 % (11.6-13.7)
[2021-04-06 07:42] LABS: ALBUMIN 1.6 g/dL (3.4-5.0); ANION GAP 8.2 (8-16); ASPARTATE AMINOTRANSFERASE 39 U/L (15-37); CARBON DIOXIDE 31.1 mmol/L (21-32); CHLORIDE 122 mmol/L (98-107); CREATININE 0.9 mg/dL (0.6-1.3); GLUCOSE 148 mg/dL (74-106); LACTATE DEHYDROGENASE 348 U/L (85-227); MAGNESIUM 2.1 mg/dL (1.8-2.4); PHOSPHORUS 2.5 mg/dL (2.5-4.9); POTASSIUM 3.3 mmol/L (3.5-5.1); TOTAL BILIRUBIN 0.7 mg/dL (0.0-1.0); UREA NITROGEN, BLOOD 17 mg/dL (7-18)
[2021-04-06 08:00] VITALS: BP 123/76
[2021-04-06] MEDS: ASCORBIC ACID 500 MG TAB PO SCH (09:00)
[2021-04-06] MEDS: ZINC SULF 220 MG CAP PO SCH ×2 (09:00→23:39)
[2021-04-06] MEDS: VITAMIN D 400 IU TAB PO SCH (09:00)
[2021-04-06 09:58] LABS: SODIUM SERUM 158 mmol/L (136-145)
[2021-04-06] MEDS ORDERED: RIVA20TA PO (11:04)
[2021-04-06] MEDS ORDERED: RIVA15TA1 PO (11:04)
[2021-04-06] MEDS ORDERED: DEXTROSE IV (11:09)
[2021-04-06] MEDS ORDERED: [UNRECOGNIZED DRUG - OTHER] IV (11:09)
[2021-04-06] MEDS: RIVAROXABAN 15 MG TAB PO SCH ×2 (11:31→23:37)
[2021-04-06 12:00] VITALS: BP 113/77
[2021-04-06] MEDS: NON ADHERENT DRESSING TP SCH (13:00)
[2021-04-06 16:00] VITALS: BP 115/75
[2021-04-06 20:00] VITALS: BP 117/76
--- NOTE | 2021-04-06 20:09 | NUR ---
PT RESTING COMFORTABLY ON 3LNC W/ NO DISTRESS NOTED WILL CONTINUE TO MONITOR
[2021-04-07] VITALS: BP 109/65
[2021-04-07] MEDS: DEXTROSE 5% 1,000 ML IV SCH (00:35)
[2021-04-07 01:13] VITALS: BP 109/65
--- NOTE | 2021-04-07 03:43 | NUR ---
REPORT GIVEN TO [facility] PT RETURNING BACK TO SNF TO ROOM 115A. AWAITING [facility]SPORT. DISCHARGE PAPERS DONE AND SIGNED.
[2021-04-07 04:00] VITALS: BP 108/71
--- NOTE | 2021-04-07 05:44 | NUR ---
UPDATED BROTHER ZANE ON PT CONDITION AND TRANSFER.
--- NOTE | 2021-04-07 06:00 | NUR ---
FINGERSTICK DONE AND IS 114. ALL FLUIDS RUNNING ORDERED.
[2021-04-07 07:39] LABS: BASOPHILS % (AUTO) 0.6 % (0.0-2.0); EOSINOPHILS # (AUTO) 0.2 K/uL (0-0.4); EOSINOPHILS % (AUTO) 4.3 % (0.0-4.0); HEMOGLOBIN 10.2 g/dL (12.0-18.0); LYMPHOCYTES # (AUTO) 1.1 K/uL (2.0-11.5); MEAN CORPUSCULAR HEMOGLOBIN 31 pg (27-31); MEAN CORPUSCULAR HGB CONC 33 g/dL (33-37); MEAN CORPUSCULAR VOLUME 92.4 fL (80-94); MONOCYTES # (AUTO) 0.4 K/uL (0.8-1.0); MONOCYTES % (AUTO) 7.6 % (1.7-9.3); NEUTROPHILS # (AUTO) 3.1 K/uL (1.8-7.7); NEUTROPHILS % (AUTO) 64.5 % (42.2-75.2); PLATELET COUNT (AUTO) 110 K/uL (140-450); RED BLOOD CELL COUNT(AUTO) 3.35 MIL/uL (4.20-6.10); RED CELL DISTRIBUTION WIDTH 21.7 % (11.6-13.7); WHITE BLOOD COUNT (AUTO) 4.8 K/uL (4.8-10.8)
--- NOTE | 2021-04-07 07:52 | NUR ---
RECEIVED PT FROM NIGHT RN, PT IS AWAKE, ALERT, ON RA, LYING ON THE BED WITH SIDE RAILS UP ADN CALL LIGHT WITHIN REACH, NO IV LINE NOTED, PT VERBALIZED REFUSAL FOR IV RE-INSERTION, DRESSING NOTED ON LEFT HAND, NO SIGN OF DISTRESS NOTED, PT IS FOR DISCHARGE TO [facility] PER REPORT, AWAITING FOR [facility]SPORT GEOGRAPHIC INFORMATION SYSTEMS DIRECTOR AT 1000H, PER MONITOR PATRICIA WARNER.
[2021-04-07 08:00] VITALS: BP 130/78
--- NOTE | 2021-04-07 08:00 | NUR ---
PT REFUSED TO HAVE ANOTHER IV LINE RE-INSERTION NOW.
[2021-04-07 08:10] LABS: ALBUMIN 1.7 g/dL (3.4-5.0); ANION GAP 8.6 (8-16); ASPARTATE AMINOTRANSFERASE 36 U/L (15-37); CARBON DIOXIDE 30.7 mmol/L (21-32); CHLORIDE 123 mmol/L (98-107); CREATININE 0.8 mg/dL (0.6-1.3); GLUCOSE 113 mg/dL (74-106); LACTATE DEHYDROGENASE 329 U/L (85-227); PHOSPHORUS 2.3 mg/dL (2.5-4.9); POTASSIUM 3.3 mmol/L (3.5-5.1); TOTAL BILIRUBIN 0.6 mg/dL (0.0-1.0); UREA NITROGEN, BLOOD 15 mg/dL (7-18)
[2021-04-07 08:15] LABS: SODIUM SERUM 159 mmol/L (136-145)
[2021-04-07] MEDS: ZINC SULF 220 MG CAP PO SCH (08:28)
[2021-04-07] MEDS: VITAMIN D 400 IU TAB PO SCH (08:28)
[2021-04-07] MEDS: RIVAROXABAN 15 MG TAB PO SCH (08:29)
[2021-04-07] MEDS: ASCORBIC ACID 500 MG TAB PO SCH (08:29)
--- NOTE | 2021-04-07 08:29 | NUR ---
PT WAS GIVEN THE SCHEDULED AM MECDICATION VIA G-TUBE, NO RESIDUAL NOTED.
--- NOTE | 2021-04-07 09:39 | NUR ---
DISCHARGED PT TO [facility] ACCOMPANIED BY [facility]SPORT, PT IS STABLE AT THIS TIME.
== END 2021-04-07 09:59 | DRG 871 ==
LOC: MED 17:09 → MTU 04-02 00:12
DX: A41.9 Sepsis, unspecified organism (principal); J69.0 Pneumonitis due to inhalation of food and vomit; G93.41 Metabolic encephalopathy; J96.01 Acute respiratory failure with hypoxia; E43 Unspecified severe protein-calorie malnutrition; I26.99 Other pulmonary embolism without acute cor pulmonale; C15.9 Malignant neoplasm of esophagus, unspecified; J44.1 Chronic obstructive pulmonary disease with (acute) exacerbation; D68.59 Other primary thrombophilia; E87.0 Hyperosmolality and hypernatremia; I28.1 Aneurysm of pulmonary artery; I50.9 Heart failure, unspecified; K21.9 Gastro-esophageal reflux disease without esophagitis; J84.10 Pulmonary fibrosis, unspecified; U09.9 Post COVID-19 condition, unspecified; N40.0 Benign prostatic hyperplasia without lower urinary tract symptoms; R13.10 Dysphagia, unspecified; E86.0 Dehydration; I71.2 Thoracic aortic aneurysm, without rupture; E87.6 Hypokalemia; E66.9 Obesity, unspecified; K44.9 Diaphragmatic hernia without obstruction or gangrene; I45.10 Unspecified right bundle-branch block; Z20.822 Contact with and (suspected) exposure to COVID-19; Z92.21 Personal history of antineoplastic chemotherapy; Z92.3 Personal history of irradiation; Z79.899 Other long term (current) drug therapy; Z93.1 Gastrostomy status; Z87.891 Personal history of nicotine dependence; Z68.32 Body mass index [BMI] 32.0-32.9, adult
CPT/HCPCS: 36415; 36600; 70450; 71045; 71275; 80048; 80053; 82803; 82948; 83605; 83615; 83690; 83735; 83880; 84100; 84484; 85025; 85379; 85651; 86140; 87040; 87081; 87804; 92610; 93005; 93971; 94660; 94664; 96365; 96367; 96375; 99291; J0456; J1650; J2060; J2270; J2543; J3535; J7060; P9046; Q0092; Q9967; U0003